=== PATIENT | male | born 1945 | race Caucasian/White ===

== ENCOUNTER → 2016-12-19 | Outpatient (CLI) | payer MEDICARE, BC ==
[2016-12-19 10:37] LABS: CH 32.5; CHCM 34.6; HCT 40.8 % (39.0-53.0); HDW 3.32; HGB 13.7 gm/dL (13.0-17.5); MCH 31.8 pg (25.0-35.0); MCHC 33.6 g/dL (31.0-37.0); MCV 94.5 fL (80.0-100.0); Mean Platelet Volume 6.5; RBC 4.31 m/uL (4.30-5.90); RDW 13.8 % (11.5-15.5); WBC 6.1 k/uL (3.8-10.6)
[2016-12-19 11:07] LABS: ALT 42 U/L (21-72); AST 26 U/L (17-59); Alkaline Phosphatase 55 U/L (38-126); Anion Gap 12 mmol/L; Blood Urea Nitrogen 15 mg/dL (9-20); Calcium 9.7 mg/dL (8.4-10.2); Carbon Dioxide 26 mmol/L (22-30); Chloride 103 mmol/L (98-107); Glucose 145 mg/dL (74-99); Non-African American GFR(MDRD) >60 (>60 ml/min/1.73 sqM); Potassium 4.9 mmol/L (3.5-5.1); Sodium 141 mmol/L (137-145); Total Bilirubin 1.1 mg/dL (0.2-1.3); Total Protein 7.8 g/dL (6.3-8.2)
--- NOTE | 2016-12-19 11:31 | XR ---
EXAMINATION TYPE: XR chest 2V DATE OF EXAM: 12/19/2016 10:39 AM COMPARISON: None TECHNIQUE: PA and lateral views submitted. HISTORY: Aortic stenosis, heart murmur FINDINGS: The lungs are clear and there is no pneumothorax, pleural effusion, or focal pneumonia. Calcified g ranulomas left upper lobe. Hypertrophic change of the spine. Arthropathy of the shoulders. No pneumot horax. Degenerative change of the spine. IMPRESSION: 1. No acute process.
--- NOTE | 2016-12-19 12:24 | US ---
EXAMINATION TYPE: US abdomen complete DATE OF EXAM: 12/19/2016 10:12 AM COMPARISON: NONE CLINICAL HISTORY: 71-year-old male R10.11 RUQ PAIN. RUQ pain x 3 days, obese patient. TECHNIQUE: Multiple sonographic images of the abdomen are obtained. FINDINGS: ART MUSEUM AIDE NOTES:Technically difficult and limited study due to patient's body habitus Liver Length: 15.7 cm Gallbladder Wall: 0.2 cm CBD: 0.4 cm Spleen: 13.2 cm Right Kidney: 10.3 x 5.6 x 5.9 cm Left Kidney: 10.9 x 5.7 x 5.6 cm Pancreas: obscured by overlying midline bowel gas Liver: Coarsened echotexture with increased echogenicity, limited by rib shadowing Gallbladder: No abnormal gallbladder distention, wall thickening, or pericholecystic fluid. Multiple shadowing calculi are present measuring up to 8 mm. Evidence for sonographic Pride's sign: no CBD: visualized portions within normal limits, limited by overlying bowel gas Spleen: Upper limits of normal in size at 13.2cm, visualization limited by rib shadowing Right Kidney: No hydronephrosis. Left Kidney: No hydronephrosis. Upper IVC: Suboptimally visualized. Abd Aorta: visualized portions within normal limits, limited by overlying midline bowel gas IMPRESSION: 1. Technically limited examination as above. 2. Liver parenchyma appears coarsened and somewhat echogenic. Correlate for underlying hepatic steato sis or other nonspecific hepatocellular disease. 3. Cholelithiasis without acute cholecystitis. 4. No biliary ductal dilatation.
== END | disposition home or self-care (01) ==
LOC: RADUSWWP 09:31
PROVIDERS: ATTEND Internal Medicine
DX: K76.9 Liver disease, unspecified (principal); K80.20 Calculus of gallbladder without cholecystitis without obstruction; E11.3299 Type 2 diabetes mellitus with mild nonproliferative diabetic retinopathy without macular edema, unspecified eye; I35.0 Nonrheumatic aortic (valve) stenosis; R10.11 Right upper quadrant pain
CPT/HCPCS: 71020; 76700; 80053; 83690; 85027

== ENCOUNTER 2017-01-03 08:21 | Day surgery (SDC) | payer MEDICARE, BC ==
[2016-12-31 13:01] VITALS: BMI 37.9
[~2017-01-03 08:21] MED LIST: DEXAMETHASONE SOD PHOSPHATE 10 MG/ML 1 ML VIAL IV ONE; MIDAZOLAM 2 MG/2 ML VIAL IV PRN; ONDANSETRON 4 MG/2 ML VIAL IVP ONE; ceFAZolin 2 GM in SODIUM CHLORIDE 0.9% 100 ML IVPB ONE
[2017-01-03 08:54] LABS: Glucose,Whole Blood 166 mg/dL (75-99)
[2017-01-03] MEDS ORDERED: LIDOCAINE 1% 20 ML VIAL (10MG/ML) FOR IV START INTRADERMA ONE (08:54)
[2017-01-03] MEDS: LACTATED RINGERS 1,000 ML IV SCH (08:54)
[2017-01-03] MEDS ORDERED: HEPARIN SODIUM,PORCINE 5,000 UNIT/ML 1 ML VIAL SQ ONE (09:18)
[2017-01-03] MEDS ORDERED: SUCCINYLCHOLINE CHLORIDE 100 MG/5 ML SYR IV ONE (09:39)
[2017-01-03] MEDS ORDERED: LIDOCAINE 1% INJ 10MG/ML (20 ML MDV) ONE (09:39)
[2017-01-03] MEDS ORDERED: NEOSTIGMINE 1 MG/ML 10 ML VIAL ONE (09:39)
[2017-01-03] MEDS ORDERED: MIDAZOLAM 2 MG/2 ML VIAL ONE (09:39)
[2017-01-03] MEDS ORDERED: HYDROmorphone (PF) 1 MG/ML ONE (09:39)
[2017-01-03] MEDS ORDERED: GLYCOPYRROLATE 0.2 MG/ML 2 ML VIAL ONE (09:39)
[2017-01-03] MEDS ORDERED: PROPOFOL 10 MG/ML 20 ML VIAL IV ONE (09:39)
[2017-01-03] MEDS ORDERED: fentaNYL (PF) 50 MCG/ML 2 ML AMP ONE (09:39)
[2017-01-03] MEDS ORDERED: ROCURONIUM BROMIDE 10 MG/ML 10 ML VIAL IV ONE (09:39)
[2017-01-03] MEDS ORDERED: BUPIVACAINE (PF) 0.25% 30 ML VIAL SQ ONE ×2 (09:55)
[2017-01-03] MEDS ORDERED: LACTATED RINGERS 1,000 ML IV ONE (10:16)
[2017-01-03] MEDS ORDERED: HYDROmorphone 1 MG/ML 1 ML SYRINGE IV PRN (11:20)
[2017-01-03] MEDS ORDERED: ONDANSETRON 4 MG/2 ML VIAL IVP PRN (11:21)
[2017-01-03 11:35] LABS: Glucose,Whole Blood 225 mg/dL (75-99)
--- NOTE | 2017-01-03 11:37 | P.OP ---
Date of Procedure: 01/03/17 Preoperative Diagnosis: Cholelithiasis chronic cholecystitis Postoperative Diagnosis: Acute cholecystitis cholelithiasis Procedure(s) Performed: Laparoscopic cholecystectomy Anesthesia: LINA Surgeon: Samuel Johnson Estimated Blood Loss (ml): 50 Pathology: other (Gallbladder) Condition: stable Disposition: PACU Indications for Procedure: Symptomatic gallstones. Patient was scheduled for elective laparoscopic cholecystectomy. Did develop severe pain yesterday after eating an onion roll. Had some tenderness in the right upper quadrant discomfort morning. Informed consent was obtained the procedure have been explained to the patient including potential complications particular bleeding infection surrounding injury pain etc. he understood and agree to proceed.. Operative Findings: Marked acute cholecystitis cholelithiasis Description of Procedure: After induction of general endotracheal anesthesia the abdominal wall was prepped with Betadine and draped local anesthetic Marcaine 0.5% with epinephrine was infiltrated into the skin and subcutaneous tissue just below the umbilicus where a small transverse incision was made. The fascia was exposed and retracted and infiltrated with the Marcaine and a Veress needle then inserted under direct vision with a satisfactory saline drop test. The peritoneal cavity were then inflated with carbon dioxide to pressure approximately 15 mmHg. The needle was then replaced with a 10 mm trocar and the laparoscope inserted. 25 mm trochars were placed in the right upper quadrant and another 5 mm trocar in the epigastrium under direct vision under local anesthesia. Visual exploration revealed a markedly inflamed gallbladder with omental adhesions.. The gallbladder was retracted. The area of the neck was carefully dissected this been somewhat difficult because of a lot of edema swelling and inflammation. The cystic duct was eventually identified and dissected and the 12th the cystic duct was then triply clipped and divided as was the cystic artery. The gallbladder was then dissected from its bed and removed through the umbilical port site the dissection being very difficult because of the acute inflammation. There was some oozing from the liver bed that was controlled with the electrocautery and Surgicel. A ANA drain was then placed in Baxter's pouch and brought out through the lateral port site and secured to the skin. All trochars were then removed under direct vision. CO2 was evacuated. Fascial incision at the umbilicus closed with interrupted 0 Vicryl sutures and the skin with 4-0 Monocryl subcuticular sutures and Steri-Strips WERE correct estimated blood loss was about 50 MLS. The patient remained stable and was transferred to the recovery room in good and stable condition.
[2017-01-03] MEDS ORDERED: INSULIN LISPRO (humaLOG) 300 UNIT/3 ML VIAL SQ ONE (11:44)
[2017-01-03] MEDS: SODIUM CHLORIDE 0.9% 1,000 ML IV SCH ×2 (12:27→23:38)
[2017-01-03 13:03] LABS: Glucose,Whole Blood 205 mg/dL (75-99)
[2017-01-03] MEDS: ACETAMINOPHEN IV (For NPO) 1,000 MG in EMPTY BAG 1 BAG IVPB SCH ×3 (15:44→23:34)
[2017-01-03] MEDS: traMADol 50 MG TAB PO SCH ×3 (15:57→22:49)
[2017-01-03] MEDS: ceFAZolin 2 GM in SODIUM CHLORIDE 0.9% 100 ML IVPB SCH ×2 (15:59→23:38)
[2017-01-03] MEDS: LOSARTAN 50 MG TAB PO SCH (17:26)
[2017-01-03] MEDS: PRAVASTATIN SODIUM 40 MG TAB PO SCH (17:26)
[2017-01-03] MEDS: amLODIPine 5 MG TAB PO SCH (17:26)
[2017-01-03] MEDS ORDERED: metFORMIN 500 MG TAB PO SCH (17:30)
[2017-01-03 17:35] LABS: Glucose,Whole Blood 184 mg/dL (75-99)
[2017-01-03] MEDS ORDERED: ACETAMINOPHEN TAB 325 MG TAB PO PRN (17:51)
[2017-01-03 21:16] LABS: Glucose,Whole Blood 155 mg/dL (75-99)
[2017-01-03] MEDS: HEPARIN SODIUM,PORCINE 5,000 UNIT/ML 1 ML VIAL SQ SCH (22:49)
[2017-01-03] MEDS: INSULIN LISPRO (humaLOG) 300 UNIT/3 ML VIAL SQ SCH (22:50)
[2017-01-04 02:11] LABS: Glucose,Whole Blood 134 mg/dL (75-99)
[2017-01-04] MEDS: ACETAMINOPHEN IV (For NPO) 1,000 MG in EMPTY BAG 1 BAG IVPB SCH (05:49)
[2017-01-04] MEDS: LACTATED RINGERS 1,000 ML IV SCH ×2 (05:49→11:03)
[2017-01-04 07:32] LABS: Glucose,Whole Blood 130 mg/dL (75-99)
[2017-01-04 07:46] VITALS: BP 119/72; PULSE 84; RESP 19; TEMP 97.1
[2017-01-04] MEDS: INSULIN LISPRO (humaLOG) 300 UNIT/3 ML VIAL SQ SCH (08:16)
[2017-01-04] MEDS ORDERED: PIOGLITAZONE 30 MG TAB PO SCH (09:00)
[2017-01-04] MEDS: ceFAZolin 2 GM in SODIUM CHLORIDE 0.9% 100 ML IVPB SCH (09:36)
[2017-01-04] MEDS: HEPARIN SODIUM,PORCINE 5,000 UNIT/ML 1 ML VIAL SQ SCH (09:37)
[2017-01-04] MEDS: amLODIPine 5 MG TAB PO SCH (09:37)
[2017-01-04] MEDS: LOSARTAN 50 MG TAB PO SCH (09:37)
[2017-01-04] MEDS: PRAVASTATIN SODIUM 40 MG TAB PO SCH (09:37)
[2017-01-04] MEDS: traMADol 50 MG TAB PO SCH (09:46)
[2017-01-04 09:55] LABS: Basophils # (A) 0.1 k/uL (0-0.2); Basophils % (A) 1 %; CH 32.4; CHCM 34.5; Eosinophils # (A) 0.1 k/uL (0-0.7); Eosinophils % (A) 1 %; HCT 40.7 % (39.0-53.0); HDW 3.29; HGB 13.6 gm/dL (13.0-17.5); Luc # (Auto) 0.15; Luc % (Auto) 2; Lymphocytes # (A) 1.5 k/uL (1.0-4.8); Lymphocytes % (A) 16 %; MCH 31.6 pg (25.0-35.0); MCHC 33.4 g/dL (31.0-37.0); MCV 94.5 fL (80.0-100.0); Mean Platelet Volume 6.1; Monocytes # (A) 0.5 k/uL (0-1.0); Monocytes % (A) 5 %; Neutrophils # (A) 6.9 k/uL (1.3-7.7); Neutrophils % (A) 75 %; WBC 9.1 k/uL (3.8-10.6); WBC (Perox) 9.08
[2017-01-04 10:11] LABS: ALT 86 U/L (21-72); AST 67 U/L (17-59); Alkaline Phosphatase 47 U/L (38-126); Anion Gap 10 mmol/L; Blood Urea Nitrogen 13 mg/dL (9-20); Calcium 9.6 mg/dL (8.4-10.2); Carbon Dioxide 26 mmol/L (22-30); Chloride 103 mmol/L (98-107); Glucose 150 mg/dL (74-99); Non-African American GFR(MDRD) >60 (>60 ml/min/1.73 sqM); Potassium 4.4 mmol/L (3.5-5.1); Sodium 139 mmol/L (137-145); Total Bilirubin 0.9 mg/dL (0.2-1.3); Total Protein 7.5 g/dL (6.3-8.2)
--- NOTE | 2017-01-04 10:58 | CONS ---
DATE OF CONSULTATION: 01/03/2017 Medical consult for medical management. He is a FULL CODE. He is a 71-year-old white male. DATA: 5 feet 7 inches. Height and weight is 109.769 kg, BSA 2.19 sq m, BMI 37.9 kg/sq m. ALLERGIES: MORPHINE. CHIEF COMPLAINT: The patient has underlying history of cholelithiasis and he has been scheduled for surgery. However, yesterday he had acute episode of acute cholecystitis and at that time came to the emergency room subsequently with this known that he has a problem and exacerbated, was taken to the OR and underwent laparoscopic cholecystectomy. The finding found that he had acute inflammation with acute cholecystitis and cholelithiasis. The patient's attending is Dr. Johnson. At that time, Dr. Johnson was out of town and they called me for medical consult as I am covering for Dr. Johnson this weekend. The patient has history of hypertension and history of diabetes mellitus type 2. He has been taking his medication. He is nonsmoker, occasional social drinker. No bleeding tendency. His blood sugar monitored and covered with insulin to scale. He is currently 155. His vital signs indicating that postop his pulse rate 94 and blood pressure 136/76 with the mean 96 and the oxygen saturation 98. His medication list: He has currently on cefazolin 2 gm, which he has received. He has underlying heparin subcu for DVT prophylaxis. He is on Dilaudid for every 3 hours 0.5 mg p.r.n. for pain. He is on insulin Humalog a.c. and at bedtime and he is on lactated Ringer's in the IV 20 mL an hour. He is on losartan 150 mg p.o. daily and he is also on Zofran. He has been on Zofran 4 mg IV push every 6 hour p.r.n. in case of he got nausea and vomiting. So far no nausea and vomiting postop. He is on pravastatin for hyperlipidemia and 40 mg daily. REVIEW OF SYSTEMS: NEUROPSYCHIATRY: Negative. CARDIOVASCULAR: He has only a history of hypertension. No chest pain or angina postoperative. ENDOCRINE: Diabetes mellitus. PULMONARY: No history of smoking. GI: He has a history of acute inflammation cholecystitis and cholelithiasis and underwent a laparoscopic cholecystectomy. At that time, found that it had adhesed to the liver and they had to peel it off from that place and patient has drainage and currently drained bloody drainage at this time. The abdomen so far has sluggish but present bowel sounds. The abdomen is normal. No tenderness except on the area of the laparoscopic done. EXTREMITIES: No edema. Positive pulses. NEURO: Exam was essentially negative. Assessment at this time we are going to hold the Actos toes as well as we are going to hold the Glucophage for tonight and resume tomorrow and no dexamethasone or Decadron to be given as well for wound healing. He is covered with insulin to scale for the time being. ASSESSMENT: 1. Underlying diabetes mellitus type 2 currently on insulin. We will hold oral hypoglycemic agent. 2. Hypertension with hypertensive heart disease. 3. Underlying hyperlipidemia. 4. Status post laparoscopic cholecystectomy with underlying acute cholecystitis and cholelithiasis. PLAN: We addressed the medication and reconciliation as well. Patient will be on clear liquid diet tonight and then tomorrow, we may try the soft diet and advance to regular diet by lunch and then subsequently by the time seen by Dr. Johnson or his associate and approve discharge and can then subsequently discharge. He is resuming on discharge his medication at home and no other problem with that.
[2017-01-04] MEDS: SODIUM CHLORIDE 0.9% 1,000 ML IV SCH (11:02)
--- NOTE | 2017-01-04 11:09 | P.DS ---
Providers Attending physician: Samuel Johnson Consults: 01/03/17 11:24 Consult Physician Routine Consulting Provider: Dex Johnson Consult Reason/Comments: med. mx Do you want consulting provider notified?: Yes Primary care physician: Dex Johnson Plan - Discharge Summary New Discharge Prescriptions: Cephalexin [Keflex] 500 mg PO Q8HR #14 cap traMADol HCL [Ultram] 50 mg PO Q6HR PRN #30 tab PRN Reason: Pain Discharge Medication List Acetaminophen [Tylenol] 325 mg PO Q4H PRN 12/31/16 [History] Ibuprofen [Motrin] 800 mg PO Q4-6H PRN 12/31/16 [History] Pioglitazone [Actos] 30 mg PO DAILY 12/31/16 [History] Pravastatin Sodium [Pravachol] 40 mg PO DAILY 12/31/16 [History] amLODIPine BES/OLMESARTAN MED [amLODIPine BES/OLMESARTAN MED 5-40 mg] 1 each PO DAILY 12/31/16 [History] metFORMIN HCL [Glucophage] 500 mg PO BID 12/31/16 [History] Cephalexin [Keflex] 500 mg PO Q8HR #14 cap 01/03/17 [Rx] traMADol HCL [Ultram] 50 mg PO Q6HR PRN #30 tab 01/03/17 [Rx] Follow up Appointment(s)/Referral(s): Samuel Johnson MD [STAFF PHYSICIAN] - 1 Week Patient Instructions/Handouts: *Surgery [facility] - Laparoscopic Cholecystectomy Discharge Instructions Activity/Diet/Wound Care/Special Instructions: Low fat diet. Resume home meds. No heavy lifting for 1 week. May shower. Incentive spirometry every 1 hr while awake.
--- NOTE | 2017-01-04 11:11 | P.PN ---
Progress Note - Text The patient is awake alert stable sitting up cheerful. In no distress. Tolerated his breakfast soft diet. On examination he is afebrile vitals are stable abdomen is soft usual postoperative tenderness. ANA drain is serosanguineous and not excessive. Labs unremarkable. Bilirubin is normal. CBC is normal. Good recovery status post laparoscopic cholecystectomy for acute cholecystitis cholelithiasis. We will DC ANA drain and discharge patient on oral analgesia and antibiotics. No heavy lifting for a week. May shower. Return appointment to the office in about a week resume home meds.
[2017-01-04 13:48] LABS: Hemoglobin A1C 5.6 % (4.2-6.1)
== END 2017-01-04 11:33 | disposition home or self-care (01) ==
LOC: OR 08:21 → 3OBS 11:12 → 4MS4W 17:22 → OR 01-04 11:33
PROVIDERS: ATTEND Surgery
DX: K80.12 Calculus of gallbladder with acute and chronic cholecystitis without obstruction (principal); K82.8 Other specified diseases of gallbladder; I11.9 Hypertensive heart disease without heart failure; E11.9 Type 2 diabetes mellitus without complications; Z79.4 Long term (current) use of insulin; Z79.84 Long term (current) use of oral hypoglycemic drugs; E78.5 Hyperlipidemia, unspecified; Z79.899 Other long term (current) drug therapy; Z88.5 Allergy status to narcotic agent
CPT/HCPCS: 88304; 80053; 83036; 85025; 47562; J2250; J1644 ×2; J1100; J2710; J0690 ×2; J2405; J2001; J3010; J1170; J0330; J2704

== ENCOUNTER → 2017-02-13 | Outpatient (CLI) | payer MEDICARE, BC ==
--- NOTE | 2017-02-13 09:01 | CT ---
EXAMINATION TYPE: CT brain wo con DATE OF EXAM: 02/13/2017 COMPARISON: NONE INDICATION: Patient complains of new onset headaches. Patient has a history of parkinsons disease. DLP: 834 mGycm, Automated exposure control for dose reduction was used. CONTRAST: None CT of the brain is performed utilizing 3 mm thick sections through the posterior fossa and 3 mm thick sections through the remaining calvarium. Study is performed within 24 hours of arrival to the hosp [facility]. No abnormal hyperdensity is present to suggest an acute intracranial hemorrhage. No mass lesion is evident. No acute infarcts are evident. Ventricles and sulci are appropriate for the patient age. Paranasal sinuses and mastoid air cells within the [id number]-apns are clear. There is some superficial soft tissue swelling over the right parietal region. Underlying sebaceous c yst could be considered within the differential. The calvarium appears unremarkable. Hyperostosis fro ntalis internus, normal variant, is present. IMPRESSIONS: 1. No suspicious acute changes intracranial CT brain. 2. Right parietal superficial soft tissue thickening. A sebaceous cyst may be present.
== END | disposition home or self-care (01) ==
LOC: RADCTMAIN 08:40
PROVIDERS: ATTEND Internal Medicine
DX: M79.89 Other specified soft tissue disorders (principal); G20 Parkinson's disease; I10 Essential (primary) hypertension; I35.0 Nonrheumatic aortic (valve) stenosis; E11.3299 Type 2 diabetes mellitus with mild nonproliferative diabetic retinopathy without macular edema, unspecified eye
CPT/HCPCS: 70450

== ENCOUNTER → 2017-05-06 | Outpatient (CLI) | payer MEDICARE, BC ==
--- NOTE | 2017-05-06 10:41 | MR ---
EXAMINATION TYPE: MR cervical spine wo con DATE OF EXAM: 05/06/2017 COMPARISON: NONE HISTORY: Neck stiffness and pain without known injury or radiation to the upper extremities. TECHNIQUE: Multiplanar, multisequence images of the cervical spine were acquired. Large T1/T2 hyperintense vertebral body hemangioma is seen of the right lateral margin of T2 as well as smaller similar lesions at T1, T2, C5, and C6. T1 hypointense and T2 peripherally hyperintense oss eous lesion measuring 7 mm is seen of the C4 vertebral body. There is slight retrolisthesis of C4 and C5. Vertebral body heights are maintained. Clivus is unremarkable as is the posterior fossa. C2-C3: Left eccentric disc osteophyte complex mildly narrows the left neural foramen. C3-C4: Left-sided uncovertebral hypertrophy and disc osteophyte complex without focal disc herniation severely narrow the left neural foramen. Right uncovertebral hypertrophy mildly narrows the right ne ural foramen and combination with facet arthropathy. These findings also result in moderate spinal ca nal stenosis with effacement of the ventral thecal space on the left and impression upon the cervical cord. C4-C5: There is a left paracentral disc herniation with 4 mm cephalad disc extrusion and pronounced l igament of flavum buckling. These findings in combination with uncovertebral hypertrophy and facet ar thropathy creates severe spinal canal stenosis, severe left neural foraminal narrowing, and moderate right neural foraminal narrowing. Just inferior to this subtle T2 hyperintense cord signal is appreci ated that is also subtly T1 hyperintense and likely relates to myelomalacia. C5-C6: There is a right paracentral disc herniation and disc osteophyte complex in combination with f acet arthropathy and uncovertebral hypertrophy as well as moderate ligamentum flavum buckling create severe spinal canal stenosis with impression upon the cervical cord and abnormal cord signal. The cor d is subtly T1 hyperintense and T2 hyperintense likely relating to myelomalacia. Resultant severe dimple ateral neural foraminal narrowing is seen. Osteophyte protrudes inferiorly along the C6 posterior anni tebral body. C6-C7: Central disc osteophyte complex is seen without evidence of neuroforaminal narrowing or spinal canal stenosis. C7-T1: No evidence for degenerative disc disease. No disc bulge/herniation or protrusion. No Canal stenosis. Foramina are patent bilaterally. T2 hyperintense lesion of the right transverse process is identified and could relate to a hemangioma as multiple hemangiomas are seen within the vertebrae. Cervical segments are intact. There is normal alignment. Cervical spinal cord is of normal signal. Craniovertebral junction relationships are within normal limits. IMPRESSION: 1. Severe spinal canal stenosis at C4-C5 and C5-C6 resulting in abnormal cord signal likely relating to myelomalacia. This is a result of a right paracentral disc herniation at C5-C6, left paracentral d isc herniation at C4-C5 with cephalad extrusion of 4 mm, facet arthropathy, uncovertebral hypertrophy , and ligamentum flavum buckling. 2. Multiple vertebral body hemangiomas and additional T1 hypointense and T2 hyperintense osseous lesi on of the C4 vertebral body that could relate to an atypical hemangioma or other osseous lesion. CT c ould be performed for further characterization. 3. Multilevel degenerative disc disease with variable degree of neuroforaminal narrowing most severe at C4-C5 and C5-C6.
== END | disposition home or self-care (01) ==
LOC: RADMRIMAIN 07:37
PROVIDERS: ATTEND Psychiatry & Neurology Neurology
DX: M48.02 Spinal stenosis, cervical region (principal); M50.021 Cervical disc disorder at C4-C5 level with myelopathy; M47.12 Other spondylosis with myelopathy, cervical region; M46.82 Other specified inflammatory spondylopathies, cervical region; D18.09 Hemangioma of other sites
CPT/HCPCS: 72141

== ENCOUNTER → 2017-09-30 | Outpatient (CLI) | payer MEDICARE, BC ==
[2017-09-30 11:19] LABS: HGB 13.3 gm/dL (13.0-17.5); MCH 30.3 pg (25.0-35.0); MCHC 32.5 g/dL (31.0-37.0); Mean Platelet Volume 6.1; Platelet Count 326 k/uL (150-450); RDW 13.9 % (11.5-15.5); WBC 5.8 k/uL (3.8-10.6)
[2017-09-30 11:33] LABS: ALT 57 U/L (21-72); AST 39 U/L (17-59); Albumin 3.9 g/dL (3.5-5.0); Alkaline Phosphatase 86 U/L (38-126); Anion Gap 12 mmol/L; Blood Urea Nitrogen 22 mg/dL (9-20); Calcium 10.1 mg/dL (8.4-10.2); Carbon Dioxide 27 mmol/L (22-30); Chloride 102 mmol/L (98-107); Glucose 165 mg/dL (74-99); Lipase 248 U/L (23-300); Potassium 4.8 mmol/L (3.5-5.1); Sodium 141 mmol/L (137-145); Total Bilirubin 0.6 mg/dL (0.2-1.3); Total Protein 7.2 g/dL (6.3-8.2)
== END | disposition home or self-care (01) ==
LOC: LABWHC1 10:50
PROVIDERS: ATTEND Internal Medicine
DX: R10.11 Right upper quadrant pain (principal)
CPT/HCPCS: 36415; 80053; 83690; 85027

== ENCOUNTER → 2017-09-30 | Outpatient (CLI) | payer MEDICARE, BC ==
--- NOTE | 2017-09-30 12:02 | XR ---
EXAMINATION TYPE: XR chest 2V DATE OF EXAM: 09/30/2017 COMPARISON: 12/19/2016 TECHNIQUE: PA and lateral views submitted. HISTORY: Pain FINDINGS: The lungs are clear and there is no pneumothorax, pleural effusion, or focal pneumonia. Pleural-bas ed thickening noted. Diffuse osteopenia and arthropathy shoulders. Linear density left upper lobe lik marylou related to scar. IMPRESSION: 1. Chronic pleural-based thickening with tiny calcification or linear density left upper lobe likely related to granuloma or scar.
== END | disposition home or self-care (01) ==
LOC: RADXRMAIN 11:08
PROVIDERS: ATTEND Internal Medicine
DX: J98.4 Other disorders of lung (principal); R10.11 Right upper quadrant pain
CPT/HCPCS: 71046

== ENCOUNTER 2017-10-06 09:56 | Inpatient (IN) | payer MEDICARE, BC ==
[2017-10-06] MEDS ORDERED: SODIUM CHLORIDE 0.9% 1,000 ML IV STA ×2 (10:38)
--- NOTE | 2017-10-06 10:42 | ED ---
Syncope HPI - General Chief Complaint: Syncope Stated Complaint: Syncope Time Seen by Provider: 10/06/17 10:00 Source: patient, RN notes reviewed Mode of arrival: EMS Limitations: no limitations - History of Present Illness Initial Comments: This is a 72-year-old male who was brought in by EMS after almost passing out at home this morning. He states he was seen a chair when she get up and start walking felt dizzy. He had sweats. He does state he is having right-sided chest and upper abdominal pain for the past 2 weeks he gets worse with deep breathing. His gallbladder out in December of this past year also note he's had recent neck fusion in April of this past year and back surgery in June this past year. He's had sweats she denies any overt fevers or chills he says some decreased intake orally. Denies any nausea vomiting diarrhea at this time. No rhinorrhea. MD Complaint: felt faint, almost passed out - Related Data Home Medications Medication Instructions Recorded Confirmed Acetaminophen [Tylenol] 325 mg PO Q4H PRN 12/31/16 10/06/17 Ibuprofen [Motrin] 800 mg PO BID PRN 12/31/16 10/06/17 Pioglitazone [Actos] 30 mg PO DAILY 12/31/16 10/06/17 Pravastatin Sodium [Pravachol] 40 mg PO DAILY 12/31/16 10/06/17 Multivitamin [Men's Multi-Vitamin] 1 tab PO DAILY 10/06/17 10/06/17 amLODIPine BESYLATE/BENAZEPRIL 1 tab PO DAILY 10/06/17 10/06/17 [amLODIPine BESYLATE/BENAZEPRIL 5-40 mg] metFORMIN HCL ER [Glucophage Xr] 500 mg PO BID 10/06/17 10/06/17 Allergies Allergy/AdvReac Type Severity Reaction Status Date / Time morphine AdvReac Nausea & Verified 10/06/17 10:02 Vomiting Review of Systems ROS Statement: Those systems with pertinent positive or pertinent negative responses have been documented in the HPI. ROS Other: All systems not noted in ROS Statement are negative. Past Medical History Past Medical History: Diabetes Mellitus, Hyperlipidemia, Hypertension, Osteoarthritis (OA) Additional Past Medical History / Comment(s): heart murmur History of Any Multi-Drug Resistant Organisms: None Reported Past Surgical History: Back Surgery Additional Past Surgical History / Comment(s): colonoscopy Past Anesthesia/Blood Transfusion Reactions: Previous Problems w/ Anesthesia Additional Past Anesthesia/Blood Transfusion Reaction / Comment(s): difficulty in past w/intubation-states was told has short neck, when intubation attempted orally they had difficulty & "took too long & lungs filled up w/fluid", was able to be intubated successfully nasally-this was back in the 90's Past Psychological History: No Psychological Hx Reported Smoking Status: Unknown if ever smoked Past Alcohol Use History: Occasional Past Drug Use History: None Reported - Past Family History Sister(s) Family Medical History: Cancer General Exam - General Exam Comments Initial Comments: Pezzer well-developed well-nourished awake alert but lethargic male Limitations: no limitations General appearance: alert, in no apparent distress, lethargic Head exam: Present: atraumatic, normocephalic, normal inspection Eye exam: Present: normal appearance, PERRL, EOMI. Absent: scleral icterus, conjunctival injection, periorbital swelling ENT exam: Present: mucous membranes dry Neck exam: Present: normal inspection. Absent: tenderness, meningismus, lymphadenopathy Respiratory exam: Present: normal lung sounds bilaterally, chest wall tenderness (Slight amount of tenderness palpation of the right anterior lateral inferior chest wall no step-off or crepitation). Absent: respiratory distress, wheezes, rales, rhonchi, stridor Cardiovascular Exam: Present: normal rhythm, tachycardia, normal heart sounds. Absent: systolic murmur, diastolic murmur, rubs, gallop, clicks GI/Abdominal exam: Present: soft, normal bowel sounds. Absent: distended, tenderness, guarding, rebound, rigid, bruit, pulsatile mass, hernia Rectal exam: Present: deferred Extremities exam: Present: normal inspection, full ROM, normal capillary refill. Absent: tenderness, pedal edema, joint swelling, calf tenderness Back exam: Present: normal inspection, full ROM. Absent: tenderness, CVA tenderness (R), CVA tenderness (L), muscle spasm, paraspinal tenderness, vertebral tenderness, rash noted Neurological exam: Present: alert, oriented X3, CN II-XII intact Psychiatric exam: Present: normal affect, normal mood Skin exam: Present: warm, intact, diaphoretic, pallor. Absent: rash Course Vital Signs 10/06/17 10/06/17 10/06/17 10:00 10:02 10:48 Temperature 97.1 F L Pulse Rate 107 H 106 H Pulse Rate [ Sitting] Pulse Rate [ Standing] Pulse Rate [ Supine] Respiratory 16 20 Rate Blood Pressure 86/43 103/55 Blood Pressure [Sitting] Blood Pressure [Standing] Blood Pressure [Supine] O2 Sat by Pulse 100 100 Oximetry 10/06/17 10/06/17 10/06/17 11:18 12:10 13:05 Temperature Pulse Rate 101 H 98 Pulse Rate [ Sitting] Pulse Rate [ Standing] Pulse Rate [ Supine] Respiratory 20 96 H Rate Blood Pressure 107/57 98/58 116/58 Blood Pressure [Sitting] Blood Pressure [Standing] Blood Pressure [Supine] O2 Sat by Pulse 100 96 100 Oximetry 10/06/17 10/06/17 10/06/17 13:35 14:25 15:35 Temperature Pulse Rate 98 99 99 Pulse Rate [ Sitting] Pulse Rate [ Standing] Pulse Rate [ Supine] Respiratory 18 18 Rate Blood Pressure 112/52 123/63 108/58 Blood Pressure [Sitting] Blood Pressure [Standing] Blood Pressure [Supine] O2 Sat by Pulse 99 99 99 Oximetry 10/06/17 10/06/17 10/06/17 16:35 17:31 18:29 Temperature Pulse Rate 101 H 95 Pulse Rate [ 98 Sitting] Pulse Rate [ 114 H Standing] Pulse Rate [ 94 Supine] Respiratory 18 18 Rate Blood Pressure 130/68 125/62 Blood Pressure 125/60 [Sitting] Blood Pressure 79/51 [Standing] Blood Pressure 131/60 [Supine] O2 Sat by Pulse 99 99 Oximetry - Reevaluation(s) Reevaluation #1: 10/06/17 18:39 I did reevaluate patient several occasions was feeling improved after IV fluids. EKG Findings - EKG Results: EKG: interpreted by ERMD (Sinus tachycardia rate 108 MT interval 164 QRS 76 QT since QTC of 320/439 over inferior changes no acute ST-T wave changes.) Medical Decision Making - Medical Decision Making Orthostatics were done and the patient prior to final discussion with Dr. Johnson. The patient blood pressure dropped from 131 systolic to 79 systolic diastolic from 60-51 heart rate ranging up to 114 from 94. He was feeling lightheaded and weak. After discussion with Dr. Johnson patient be admitted for IV fluids and further evaluation. - Lab Data Result diagrams: 10/06/17 10:11 10/06/17 11:45 Lab Results 10/06/17 10/06/17 10/06/17 Range/Units 10:11 10:11 10:45 WBC 7.5 (3.8-10.6) k/uL RBC 4.07 L (4.30-5.90) m/uL Hgb 11.9 L (13.0-17.5) gm/dL Hct 36.9 L (39.0-53.0) % MCV 90.7 (80.0-100.0) fL MCH 29.3 (25.0-35.0) pg MCHC 32.3 (31.0-37.0) g/dL RDW 13.8 (11.5-15.5) % Plt Count 566 H (150-450) k/uL Neutrophils % 74 % Lymphocytes % 18 % Monocytes % 4 % Eosinophils % 2 % Basophils % 1 % Neutrophils # 5.5 (1.3-7.7) k/uL Lymphocytes # 1.4 (1.0-4.8) k/uL Monocytes # 0.3 (0-1.0) k/uL Eosinophils # 0.1 (0-0.7) k/uL Basophils # 0.1 (0-0.2) k/uL PT 10.4 (9.0-12.0) sec INR 1.1 (<1.2) APTT 19.3 L (22.0-30.0) sec D-Dimer 2.19 H (<0.60) mg/L FEU Sodium (137-145) mmol/L Potassium (3.5-5.1) mmol/L Chloride (98-107) mmol/L Carbon Dioxide (22-30) mmol/L Anion Gap mmol/L BUN (9-20) mg/dL Creatinine (0.66-1.25) mg/dL Est GFR (MDRD) Af Amer (>60 ml/min/1.73 sqM) Est GFR (MDRD) Non-Af (>60 ml/min/1.73 sqM) Glucose (74-99) mg/dL POC Glucose (mg/dL) 269 H (75-99) mg/dL POC Glu Harp Maker ID Vikas Mandel Calcium (8.4-10.2) mg/dL Magnesium (1.6-2.3) mg/dL Total Bilirubin (0.2-1.3) mg/dL AST (17-59) U/L ALT (21-72) U/L Alkaline Phosphatase (38-126) U/L Total Creatine Kinase (55-170) U/L CK-MB (CK-2) (0.0-2.4) ng/mL CK-MB (CK-2) Rel Index Troponin I (0.000-0.034) ng/mL Total Protein (6.3-8.2) g/dL Albumin (3.5-5.0) g/dL 10/06/17 10/06/17 Range/Units 11:45 11:45 WBC (3.8-10.6) k/uL RBC (4.30-5.90) m/uL Hgb (13.0-17.5) gm/dL Hct (39.0-53.0) % MCV (80.0-100.0) fL MCH (25.0-35.0) pg MCHC (31.0-37.0) g/dL RDW (11.5-15.5) % Plt Count (150-450) k/uL Neutrophils % % Lymphocytes % % Monocytes % % Eosinophils % % Basophils % % Neutrophils # (1.3-7.7) k/uL Lymphocytes # (1.0-4.8) k/uL Monocytes # (0-1.0) k/uL Eosinophils # (0-0.7) k/uL Basophils # (0-0.2) k/uL PT (9.0-12.0) sec INR (<1.2) APTT (22.0-30.0) sec D-Dimer (<0.60) mg/L FEU Sodium 138 (137-145) mmol/L Potassium 4.8 (3.5-5.1) mmol/L Chloride 104 (98-107) mmol/L Carbon Dioxide 25 (22-30) mmol/L Anion Gap 9 mmol/L BUN 14 (9-20) mg/dL Creatinine 1.00 (0.66-1.25) mg/dL Est GFR (MDRD) Af Amer >60 (>60 ml/min/1.73 sqM) Est GFR (MDRD) Non-Af >60 (>60 ml/min/1.73 sqM) Glucose 233 H (74-99) mg/dL POC Glucose (mg/dL) (75-99) mg/dL POC Glu Harp Maker ID Calcium 9.0 (8.4-10.2) mg/dL Magnesium 1.4 L (1.6-2.3) mg/dL Total Bilirubin 0.5 (0.2-1.3) mg/dL AST 35 (17-59) U/L ALT 47 (21-72) U/L Alkaline Phosphatase 72 (38-126) U/L Total Creatine Kinase 26 L (55-170) U/L CK-MB (CK-2) 0.3 (0.0-2.4) ng/mL CK-MB (CK-2) Rel Index 1.2 Troponin I <0.012 (0.000-0.034) ng/mL Total Protein 5.9 L (6.3-8.2) g/dL Albumin 3.1 L (3.5-5.0) g/dL - Radiology Data Radiology results: report reviewed (I did review the imaging and reports that spoken with Dr. Villatoro regarding the findings on the CAT scan suspicious for possible hematoma around sleeve. He did recommend a ultrasound. Ultrasound was performed showing evidence of free fluid ascites no evidence of any bleeding. There was however evidence of a possible mass in the right lobe of the liver.), image reviewed Disposition Clinical Impression: Syncope due to orthostatic hypotension, Failure to thrive Disposition: ADMITTED IP TO THIS [facility] Condition: Stable Referrals: Dex Johnson MD [Primary Care Provider] - 1-2 days
[2017-10-06 10:49] LABS: Glucose,Whole Blood 269 mg/dL (75-99)
[2017-10-06 10:53] LABS: Basophils # (A) 0.1 k/uL (0-0.2); Basophils % (A) 1 %; Eosinophils # (A) 0.1 k/uL (0-0.7); Eosinophils % (A) 2 %; HCT 36.9 % (39.0-53.0); HGB 11.9 gm/dL (13.0-17.5); Lymphocytes # (A) 1.4 k/uL (1.0-4.8); Lymphocytes % (A) 18 %; MCH 29.3 pg (25.0-35.0); MCHC 32.3 g/dL (31.0-37.0); MCV 90.7 fL (80.0-100.0); Mean Platelet Volume 6.7; Monocytes # (A) 0.3 k/uL (0-1.0); Monocytes % (A) 4 %; Neutrophils # (A) 5.5 k/uL (1.3-7.7); Neutrophils % (A) 74 %; Platelet Count 566 k/uL (150-450); RBC 4.07 m/uL (4.30-5.90); RDW 13.8 % (11.5-15.5); WBC 7.5 k/uL (3.8-10.6)
--- NOTE | 2017-10-06 11:19 | XR ---
EXAMINATION TYPE: XR abdomen 1V DATE OF EXAM: 10/06/2017 COMPARISON: NONE HISTORY: Pain TECHNIQUE: One view abdominal series FINDINGS: The osseous structures are intact. The bowel gas pattern is nonspecific. Lung bases are clear. Hype rtrophic change the spine noted. Surgical clips in the right upper quadrant. Vascular calcifications in the pelvis. Arthropathy of the hips. IMPRESSION: 1. Nonspecific abdomen.
--- NOTE | 2017-10-06 11:21 | XR ---
EXAMINATION TYPE: XR chest 2V DATE OF EXAM: 10/06/2017 COMPARISON: 09/30/2017 TECHNIQUE: PA and lateral views submitted. HISTORY: Syncope FINDINGS: The lungs are clear and there is no pneumothorax, pleural effusion, or focal pneumonia. Hypertrophi c and degenerative change of the spine. Postsurgical change involving the cervical spine. Surgical cl ips in the abdomen. Pleural-based thickening bilaterally. Atherosclerotic change aorta. IMPRESSION: 1. No acute process.
[2017-10-06 11:58] LABS: D-Dimer 2.19 mg/L FEU (<0.60); INR 1.1 (<1.2); Prothrombin Time 10.4 sec (9.0-12.0)
[2017-10-06 11:59] LABS: Partial Thromboplastin Time 19.3 sec (22.0-30.0)
[2017-10-06 12:09] LABS: ALT 47 U/L (21-72); AST 35 U/L (17-59); Albumin 3.1 g/dL (3.5-5.0); Anion Gap 9 mmol/L; Blood Urea Nitrogen 14 mg/dL (9-20); Carbon Dioxide 25 mmol/L (22-30); Chloride 104 mmol/L (98-107); Glucose 233 mg/dL (74-99); Magnesium 1.4 mg/dL (1.6-2.3); Potassium 4.8 mmol/L (3.5-5.1); Sodium 138 mmol/L (137-145); Total Bilirubin 0.5 mg/dL (0.2-1.3); Total Protein 5.9 g/dL (6.3-8.2)
[2017-10-06 12:10] LABS: Alkaline Phosphatase 72 U/L (38-126)
[2017-10-06 12:15] LABS: Creatine Kinase 26 U/L (55-170)
[2017-10-06 12:28] LABS: Creatine Kinase MB 0.3 ng/mL (0.0-2.4); Troponin I <0.012 ng/mL (0.000-0.034)
[2017-10-06] MEDS ORDERED: RX INFO: IV CONTRAST WAS GIVEN 1 EACH MISC MISCELLANE PRN ×3 (13:32→19:58)
[2017-10-06] MEDS ORDERED: KETOROLAC 30 MG/ML 1 ML VIAL IVP STA (13:50)
--- NOTE | 2017-10-06 15:54 | CT ---
CT CHEST FOR PULMONARY EMBOLISM. EXAMINATION TYPE: CT angio chest DATE OF EXAM: 10/06/2017 INDICATION: Chest pain x 3-[address] DLP: 589 mGycm, Automated exposure control for dose reduction was used. CONTRAST: Patient injected with 67 mL of Omnipaque 350. COMPARISON: NONE TECHNIQUE: CT of the chest is performed on a spiral scan at 2 mm thick sections. Study is performed with intravenous contrast timed for evaluation for pulmonary embolism. This will limit additional po rtions of the evaluation. 3-D MIP images reconstructed by the technologist are reviewed on the compu ter in the coronal and sagittal planes. FINDINGS: No persistent filling defects are evident to suggest an acute pulmonary embolism. No mediastinal or hilar adenopathy enlarged by CT criteria is evident. The ascending aorta diameter at the level of the main pulmonary artery is 3.2 cm. The main pulmonary artery diameter at the bifur cation is 2.1 cm. The aorta tapers normally throughout its visualized course. Some streak atelectasis is likely present within the dependent portions of the lung bases bilaterally . There is fluid adjacent to the spleen. Correlate for trauma. Focal ascites could be considered. Repor t was called to the emergency room physician Dr. Stafford by Dr. Villatoro by telephone at the time of inte rpretation [id number]. IMPRESSIONS: 1. No acute pulmonary embolism. 2. Fluid adjacent to the spleen. Correlate for trauma. Hemorrhage should be considered Ascites could be considered. Consider ultrasound for additional evaluation
[2017-10-06] MEDS ORDERED: FAMOTIDINE 20 MG/2 ML VIAL IV STA (17:04)
--- NOTE | 2017-10-06 17:56 | US ---
EXAMINATION TYPE: US abdomen complete DATE OF EXAM: 10/06/2017 COMPARISON: CLINICAL HISTORY: Pain. Gallbladder removed 2017 EXAM MEASUREMENTS: Liver Length: 20.5 cm CHD: 0.4 cm Spleen: 12.3 cm Right Kidney: 9.6 x 5.3 x 5.1 cm Left Kidney: 10.9 x 4.8 x 6.1 cm Limited exam due to patient unable to turn LLD or RLD. Limited exam due to overlying bowel gas Pancreas: Obscured by bowel gas Liver: Enlarged. Left lobe liver not well visualized. Possible anterior focal mass= 9.5 x 10.0 x 7. 3 cm. Limited exam Gallbladder: Surgically absent Evidence for sonographic Pride's sign: No CBD: Obscured by overlying bowel gas CHD: wnl Spleen: wnl Right Kidney: wnl as seen, limited visualization due to bowel gas Left Kidney: wnl as seen, limited visualization due to bowel gas Upper IVC: Obscured by overlying bowel gas Abd Aorta: Portions obscured by overlying bowel gas, distal appears wnl Fluid seen surrounding spleen IMPRESSION: Liver is enlarged with heterogeneity. There is possible large mass in the anterior right lobe of the liver. CT scan of the chest is reviewed from today and there is heterogeneous mild vascul ar enhancement in the anterior right lobe of the liver that could relate to a vascular mass. Follow-u p is recommended. MR scan or dedicated CT abdomen would be helpful for further evaluation. Spleen is slightly enlarged. There is free fluid ascites around the spleen. No dilated ducts. No evid ence of renal mass or obstruction.
[2017-10-06] MEDS ORDERED: NALOXONE 0.4 MG/ML 1 ML VIAL IV PRN (18:42)
[2017-10-06] MEDS ORDERED: IBUPROFEN 800 MG TAB PO PRN (18:44)
[2017-10-06] MEDS ORDERED: ACETAMINOPHEN TAB 325 MG TAB PO PRN (18:44)
[2017-10-06 19:15] LABS: HCT 32.6 % (39.0-53.0); HGB 10.6 gm/dL (13.0-17.5); MCH 29.3 pg (25.0-35.0); MCHC 32.4 g/dL (31.0-37.0); MCV 90.3 fL (80.0-100.0); Mean Platelet Volume 6.5; Platelet Count 434 k/uL (150-450); RBC 3.61 m/uL (4.30-5.90); RDW 13.9 % (11.5-15.5); WBC 10.9 k/uL (3.8-10.6)
[2017-10-06 19:37] LABS: ALT 55 U/L (21-72); AST 40 U/L (17-59); Albumin 3.4 g/dL (3.5-5.0); Alkaline Phosphatase 73 U/L (38-126); Anion Gap 9 mmol/L; Blood Urea Nitrogen 17 mg/dL (9-20); Calcium 9.8 mg/dL (8.4-10.2); Carbon Dioxide 24 mmol/L (22-30); Chloride 104 mmol/L (98-107); Glucose 172 mg/dL (74-99); Potassium 5.8 mmol/L (3.5-5.1); Sodium 137 mmol/L (137-145); Total Bilirubin 0.5 mg/dL (0.2-1.3); Total Protein 6.2 g/dL (6.3-8.2)
--- NOTE | 2017-10-06 20:45 | CT ---
EXAMINATION TYPE: CT abdomen pelvis w con DATE OF EXAM: 10/06/2017 COMPARISON: NONE HISTORY: R/O intra-abdominal bleed. Abdominal pain CT DLP: 1813.6 mGycm Automated exposure control for dose reduction was used. TECHNIQUE: Helical acquisition of images was performed from the lung bases through the pelvis. CONTRAST: Performed without Oral Contrast and with IV Contrast, patient injected with 100 mL of Omnipaque 300. FINDINGS: There is a 12 x 7 cm mass in the anterior right lobe of the liver with heterogeneous enhancement nikki mary anne. I do not see peripheral enhancement to suggest hemangioma. The bile ducts are not dilated. There is a 2 cm rounded fluid area in the posterior right lobe of the liver. Spleen appears normal. There is mild to moderate ascites fluid in the abdomen. There is no evidence of a pancreatic mass. Spleen appears normal. There is no adrenal mass. Kidneys show satisfactory contrast opacification. There is no hydronephrosi s. There is a 1 cm cortical cyst in the anterior right kidney. I see no intestinal wall thickening. Bladder distends smoothly with contrast. There is no sign of a p elvic mass. There is no evidence of bowel obstruction. I see no bony destructive process. 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 PATCHY ATELECTASIS IN CALCIFIED PLEURAL PLAQUE AT THE POSTERIOR LUNG BASES. SMALL HEPATIC CYST. MILD TO MODERATE ASCITES FLUID. RIGHT RENAL CORTICAL CYST.
[2017-10-06] MEDS ORDERED: metFORMIN 500 MG TAB PO SCH (21:00)
[2017-10-06] MEDS ORDERED: HYDROmorphone 4 MG/ML 1 ML SYRINGE IVP PRN (21:02)
[2017-10-06] MEDS: ONDANSETRON 4 MG/2 ML VIAL IVP PRN (21:17)
[2017-10-06] MEDS: HYDROmorphone 0.5 MG/0.5 ML SYRINGE IVP PRN (21:17)
[2017-10-06] MEDS: SODIUM CHLORIDE 0.9% 1,000 ML IV SCH (21:20)
[2017-10-06 23:12] LABS: Glucose,Whole Blood 158 mg/dL (75-99)
[2017-10-06 23:25] VITALS: BMI 33.9
--- NOTE | 2017-10-07 00:14 | HP ---
HISTORY AND PHYSICAL CHIEF COMPLAINT: Near passing out. HISTORY OF PRESENT ILLNESS: This 72-year-old gentleman presents to the emergency room with episode of feeling dizzy, lightheaded and near syncope. Symptoms occurred when the patient was standing up from sitting position. He did sit down. He got up again and this time almost passed out, basically was eased down to the floor and then set up as an EMS picked up the patient. He has had some right upper quadrant abdominal pain and pain in the right shoulder area. Seen in the ER, noted to have no evidence of cardiac event except for the postural hypotension. The patient's vital signs at the time of the ER initial visit, initial evaluation revealed the patient's blood pressure was 86/43 with temperature 97.3, pulse of 107, and pulse ox 100 on 2 L. The patient was given IV fluids and blood pressure stabilized. Heart rate stabilized. The patient's heart rate was basically sinus tachycardia. The patient remained fairly stable and he was feeling fine. The ER doctor was contemplating discharging him. He did get the patient up to see how he felt and the patient's blood pressure dropped down to 79/51 with pulse of 60. The patient's does lay back feeling better. At this point, he had undergone a CT scan of the chest to rule out pulmonary embolism. EKG revealed no acute changes and cardiac enzymes were negative. The patient had seen me a week ago and did complain of intermittent pain in the high right upper abdominal area radiating to the shoulder area. The pain felt like he says when he had his gallbladder episode. The patient had a chemistry, CBC and a chest x-ray done which were all unremarkable. The patient's symptoms had improved. The patient actually said he was feeling better. He had another episode of some pains today. The patient has significant pain and in view of this, presented to the hospital. The patient's CT scan of the chest suggested that might be possibly splenic hematoma. An ultrasound did not see the liver very clearly, but was suspicious of some mass. At the time of evaluation, repeat CBC reveals the patient has a hemoglobin dropped to 10.6, and his abdomen seemed to be more distended than when I had seen a week ago. A stat CT scan of the abdomen and pelvis done reveals the patient large liver mass with apparent nodular patchy enhancement suspicious for primary liver tumor and there was patchy atelectasis and calcified pleural plaque in the posterior lung bases. The patient has no cough, congestion. PAST MEDICAL HISTORY: Past medical history significant for diabetes mellitus, adequately controlled. 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 Also there is history of BPH. PAST SURGICAL HISTORY: Significant for bilateral cataract surgery, lumbosacral fusion x3. The last one being in June 2017. The cervical spinal stenosis released back in May 2017. PERSONAL HISTORY: Never smoker. Alcohol 1-2 beers a day. None lately. SOCIAL HISTORY: The patient is , lives with spouse and fairly active until this past year. He does some exercises with the physical therapist lately. He has not done a for the past week. FAMILY MEDICAL HISTORY: Mother age 74, COPD, peripheral arterial disease and diabetes mellitus. Father at age of 74 of coronary artery disease and diabetes mellitus. The patient has a brother at 73, multiple sclerosis, a brother at the age of 27, motor vehicle accident. A brother 65 with history of diabetes mellitus and bipolar disorder. Sister 59 with history of diabetes mellitus, a sister 46 with history of bipolar disorder and diabetes mellitus. The patient has 4 sons and 1 daughter, all in good health. MEDICATIONS: Medications have included: Astrid 180 daily, ibuprofen 800 b.i.d., 30 mg 1 tablet daily. Lotrel 5-40 1 daily, metformin 500 mg 2 tablets daily, Crestor 40 mg daily. SOCIAL HISTORY: Patient , lives with spouse. ALLERGIES: None known. VACCINATION HISTORY: Had influenza vaccine June 09, 2017. Pneumococcal vaccine July 31, 2011. REVIEW OF SYSTEMS: Neuro: Denies any headaches. Present complaint of dizziness and near syncopal episode. The patient recently had been evaluated by the neurologist for possible Parkinson's and does not feel he has so. He did have some cervical spinal stenosis, which is resolved post surgery. Psych: No anxiety depression. Cardiac no chest pain, angina, palpitations. Respiratory: No shortness of breath, cough, hemoptysis. GI some abdominal pain, radiation to shoulder on the right side. No nausea. Some heartburn. No abdominal pain. No diarrhea, constipation, chronic. A bowel movement yesterday which was normal color. no symptoms or dysuria or hematuria. Extremities: Pain, trace edema. Constitutional: No fever or chills. Hematological no anemia or bleeding disorder. Endocrine: History of diabetes, well controlled. CONSTITUTIONAL: No fever, chills. No weight gain or weight loss. PHYSICAL EXAMINATION: Pleasant gentleman, appears pale at present. No distress. Awake, alert. Vital signs as mentioned above. At the time of my examination, patient's temperature is 97.9, pulse 95, respirations 18, blood pressure 143/65, pulse ox of 99% on 2 L, and a 2nd temperature was 97.9, pulse 96, respirations 20, blood pressure 123/58, pulse ox 99% 2 L. HEENT: Normocephalic. Pupils reactive. Conjunctivae some pallor. No icterus. Nostrils clear. Oral cavity is dry. Ears reveal no drainage. Neck reveals no JVD, carotid bruits or thyromegaly. Chest examination is clear to auscultation and percussion. Cardiac normal S1, S2 with no gallops. Systolic murmur 2/6 left sternal border. Abdomen distended. Tender, especially right upper abdomen. Bowel sounds are active. No dullness on percussion. Extremities reveal trace edema. NEUROLOGIC: Awake, alert, oriented x3 with well-coordinated movements. LABORATORY DATA: CBC shows a white count 7.5, hemoglobin 11.9, platelets 566. Repeat was white count 10.9, hemoglobin 10.6, platelets 434. INR was normal. D-dimer was elevated to 2.19. Electrolytes are normal. Repeat potassium was 5. Potassium was 4.8 and BUN 14, creatinine 1.06, repeat prior to 2nd CT scan head BUN 17, creatinine 1.17. Normal hepatic function. Troponin negative. Albumin 3.4. CPK 26. EKG reveals sinus tachycardia, no acute changes. Patient's chest x-ray did not reveal any significant changes. CTA aorta looks good. No pulmonary embolism. CT of the abdomen as mentioned above. Hepatic mass. ASSESSMENT: 1. Portal hypotension with near syncope. 2. Anemia with no clear evidence of bleeding. 3. Diabetes mellitus. Blood sugar fair control. 4. Hepatic mass. PLAN: Continue present medical regimen. The patient will continue present medications with hydration. All patient's blood pressure medications. Blood sugars be controlled and monitored. Surgical consultation and will have invasive radiologist to evaluate for possible biopsy. The patient's condition is discussed with the patient and family including the liver mass and possibility of malignancy. Prognosis at present is guarded. MMODL / IJN: [id number] /
[2017-10-07] MEDS: HYDROmorphone 0.5 MG/0.5 ML SYRINGE IVP PRN ×3 (00:16→17:59)
[2017-10-07 06:15] LABS: Glucose,Whole Blood 154 mg/dL (75-99)
[2017-10-07] MEDS: SODIUM CHLORIDE 0.9% 1,000 ML IV SCH ×2 (06:22→20:05)
[2017-10-07 06:54] LABS: Anion Gap 10 mmol/L; Blood Urea Nitrogen 21 mg/dL (9-20); Calcium 9.2 mg/dL (8.4-10.2); Carbon Dioxide 24 mmol/L (22-30); Chloride 103 mmol/L (98-107); Glucose 148 mg/dL (74-99); Potassium 5.8 mmol/L (3.5-5.1); Sodium 137 mmol/L (137-145)
[2017-10-07 07:33] LABS: HCT 30.1 % (39.0-53.0); HGB 9.5 gm/dL (13.0-17.5); MCH 29.3 pg (25.0-35.0); MCHC 31.7 g/dL (31.0-37.0); MCV 92.4 fL (80.0-100.0); Mean Platelet Volume 6.9; Platelet Count 412 k/uL (150-450); RBC 3.26 m/uL (4.30-5.90); RDW 14.2 % (11.5-15.5); WBC 10.6 k/uL (3.8-10.6)
[2017-10-07] MEDS: METOPROLOL TARTRATE 25 MG TAB PO SCH ×2 (08:21→20:04)
[2017-10-07] MEDS: FAMOTIDINE 20 MG/2 ML VIAL IV SCH ×2 (08:22→20:05)
[2017-10-07] MEDS ORDERED: PIOGLITAZONE 30 MG TAB PO SCH (09:00)
[2017-10-07] MEDS ORDERED: PRAVASTATIN SODIUM 40 MG TAB PO SCH (09:00)
[2017-10-07] MEDS ORDERED: LISINOPRIL 20 MG TAB PO SCH (09:00)
[2017-10-07] MEDS ORDERED: amLODIPine 5 MG TAB PO SCH (09:00)
[2017-10-07] MEDS ORDERED: HYDROmorphone 2 MG/ML 1 ML SYRINGE IVP ONE (12:15)
--- NOTE | 2017-10-07 12:27 | US ---
EXAMINATION TYPE: US biopsy liver DATE OF EXAM: 10/07/2017 HISTORY: Liver mass. FINDINGS: Maximal barrier technique was utilized. The skin overlying a suitable path to the patient' s mass was localized with ultrasound and the overlying skin prepped and draped. Ultrasound was utili zed with sterile technique. Lidocaine was used for local anesthesia. A skin emery was made with a sc alpel. An 18-gauge needle was advanced under direct ultrasound guidance and core specimen obtained o f the mass. Specimen submitted in formalin to Pathology. Following the procedure, hemostasis achiev ed and the patient is discharged in stable condition without complication. IMPRESSION:STATUS POST ULTRASOUND GUIDED CORE BIOPSY OF liver MASS, PATHOLOGY IS PENDING. THIS PROCE DURE IS PERFORMED BY THE UNDERSIGNED.
[2017-10-07 12:45] LABS: Glucose,Whole Blood 167 mg/dL (75-99)
[2017-10-07] MEDS: MULTIVITAMINS, THERA 1 EACH TAB PO SCH (13:59)
[2017-10-07] MEDS: ONDANSETRON 4 MG/2 ML VIAL IVP PRN (16:14)
--- NOTE | 2017-10-07 16:51 | P.GSCN ---
History of Present Illness Consult date: 10/07/17 History of present illness: 72-year-old male presented to the emergency department with orthostatic hypotension and complaints of abdominal pain and right shoulder pain. I was called by Dr. Johnson last night about the patient, secondary to concern with his abdominal pain. Due to the patient's hypotension, there was concern that there may be an intra-abdominal bleed. CT of the abdomen and pelvis was performed that did illustrate fluid in the abdomen with concern of a large hepatic mass. This was biopsied earlier today. The patient is currently in his hospital room with family members. He states that he began having right upper quadrant pain similar to when he had gallbladder disease. He states that the pain radiated to his right shoulder. He states that the pain was more intense. Currently, he states his pain is well-controlled. He denies any nausea and vomiting. He denies any change in appetite. He denies any change in bowel function. He states his last colonoscopy was within the last year. He has no additional complaints at this time. Review of Systems All systems: negative Past Medical History Past Medical History: Diabetes Mellitus, Hyperlipidemia, Hypertension, Osteoarthritis (OA) Additional Past Medical History / Comment(s): heart murmur History of Any Multi-Drug Resistant Organisms: None Reported Past Surgical History: Back Surgery Additional Past Surgical History / Comment(s): colonoscopy Past Anesthesia/Blood Transfusion Reactions: Previous Problems w/ Anesthesia Additional Past Anesthesia/Blood Transfusion Reaction / Comm: difficulty in past w/intubation-states was told has short neck, when intubation attempted orally they had difficulty & "took too long & lungs filled up w/fluid", was able to be intubated successfully nasally-this was back in the 's Past Psychological History: No Psychological Hx Reported Smoking Status: Never smoker Past Alcohol Use History: Occasional Past Drug Use History: None Reported - Past Family History Sister(s) Family Medical History: Cancer Medications and Allergies Home Medications Medication Instructions Recorded Confirmed Type Acetaminophen [Tylenol] 325 mg PO Q4H PRN 12/31/16 10/06/17 History Ibuprofen [Motrin] 800 mg PO BID PRN 12/31/16 10/06/17 History Pioglitazone [Actos] 30 mg PO DAILY 12/31/16 10/06/17 History Pravastatin Sodium [Pravachol] 40 mg PO DAILY 12/31/16 10/06/17 History Multivitamin [Men's Multi-Vitamin] 1 tab PO DAILY 10/06/17 10/06/17 History amLODIPine BESYLATE/BENAZEPRIL 1 tab PO DAILY 10/06/17 10/06/17 History [amLODIPine BESYLATE/BENAZEPRIL 5-40 mg] metFORMIN HCL ER [Glucophage Xr] 500 mg PO BID 10/06/17 10/06/17 History Allergies Allergy/AdvReac Type Severity Reaction Status Date / Time morphine AdvReac Nausea & Verified 10/06/17 10:02 Vomiting Surgical - Exam Osteopathic Statement: *. No significant issues noted on an osteopathic structural exam other than those noted in the History and Physical/Consult. Vital Signs Temp Pulse Resp Pulse Ox 97.1 F L 107 H 16 100 10/06/17 10:00 10/06/17 10:00 10/06/17 10:00 10/06/17 10:00 - General well developed, well nourished, no distress - Eyes PERRL, normal ocular movement - Neck no masses, no bruits, trachea midline - Respiratory No difficulty with respiration - Abdomen Soft, nontender, mildly distended, no rebound, no guarding - Psychiatric oriented to time, oriented to person, oriented to place, speech is normal, memory intact Results - Labs 10/07/17 06:10 10/07/17 06:10 Abnormal Lab Results - Last 24 Hours (Table) 10/06/17 10/06/17 10/06/17 Range/Units 19:05 19:05 23:10 WBC 10.9 H (3.8-10.6) k/uL RBC 3.61 L (4.30-5.90) m/uL Hgb 10.6 L (13.0-17.5) gm/dL Hct 32.6 L (39.0-53.0) % Potassium 5.8 H (3.5-5.1) mmol/L BUN (9-20) mg/dL Creatinine (0.66-1.25) mg/dL Glucose 172 H (74-99) mg/dL POC Glucose (mg/dL) 158 H (75-99) mg/dL Total Protein 6.2 L (6.3-8.2) g/dL Albumin 3.4 L (3.5-5.0) g/dL 10/07/17 10/07/17 10/07/17 Range/Units 06:10 06:10 06:10 WBC (3.8-10.6) k/uL RBC 3.26 L (4.30-5.90) m/uL Hgb 9.5 L (13.0-17.5) gm/dL Hct 30.1 L (39.0-53.0) % Potassium 5.8 H (3.5-5.1) mmol/L BUN 21 H (9-20) mg/dL Creatinine 1.28 H (0.66-1.25) mg/dL Glucose 148 H (74-99) mg/dL POC Glucose (mg/dL) 154 H (75-99) mg/dL Total Protein (6.3-8.2) g/dL Albumin (3.5-5.0) g/dL 10/07/17 Range/Units 12:42 WBC (3.8-10.6) k/uL RBC (4.30-5.90) m/uL Hgb (13.0-17.5) gm/dL Hct (39.0-53.0) % Potassium (3.5-5.1) mmol/L BUN (9-20) mg/dL Creatinine (0.66-1.25) mg/dL Glucose (74-99) mg/dL POC Glucose (mg/dL) 167 H (75-99) mg/dL Total Protein (6.3-8.2) g/dL Albumin (3.5-5.0) g/dL Diabetes panel 10/06/17 10/07/17 Range/Units 19:05 06:10 Sodium 137 137 (137-145) mmol/L Potassium 5.8 H 5.8 H (3.5-5.1) mmol/L Chloride 104 103 (98-107) mmol/L Carbon Dioxide 24 24 (22-30) mmol/L BUN 17 21 H (9-20) mg/dL Creatinine 1.17 1.28 H (0.66-1.25) mg/dL Glucose 172 H 148 H (74-99) mg/dL Calcium 9.8 9.2 (8.4-10.2) mg/dL AST 40 (17-59) U/L ALT 55 (21-72) U/L Alkaline Phosphatase 73 (38-126) U/L Total Protein 6.2 L (6.3-8.2) g/dL Albumin 3.4 L (3.5-5.0) g/dL Calcium panel 10/06/17 10/07/17 Range/Units 19:05 06:10 Calcium 9.8 9.2 (8.4-10.2) mg/dL Albumin 3.4 L (3.5-5.0) g/dL Pituitary panel 10/06/17 10/07/17 Range/Units 19:05 06:10 Sodium 137 137 (137-145) mmol/L Potassium 5.8 H 5.8 H (3.5-5.1) mmol/L Chloride 104 103 (98-107) mmol/L Carbon Dioxide 24 24 (22-30) mmol/L BUN 17 21 H (9-20) mg/dL Creatinine 1.17 1.28 H (0.66-1.25) mg/dL Glucose 172 H 148 H (74-99) mg/dL Calcium 9.8 9.2 (8.4-10.2) mg/dL Adrenal panel 10/06/17 10/07/17 Range/Units 19:05 06:10 Sodium 137 137 (137-145) mmol/L Potassium 5.8 H 5.8 H (3.5-5.1) mmol/L Chloride 104 103 (98-107) mmol/L Carbon Dioxide 24 24 (22-30) mmol/L BUN 17 21 H (9-20) mg/dL Creatinine 1.17 1.28 H (0.66-1.25) mg/dL Glucose 172 H 148 H (74-99) mg/dL Calcium 9.8 9.2 (8.4-10.2) mg/dL Total Bilirubin 0.5 (0.2-1.3) mg/dL AST 40 (17-59) U/L ALT 55 (21-72) U/L Alkaline Phosphatase 73 (38-126) U/L Total Protein 6.2 L (6.3-8.2) g/dL Albumin 3.4 L (3.5-5.0) g/dL - Imaging CT scan - abdomen: report reviewed, image reviewed CT scan - pelvis: report reviewed, image reviewed (CT of the abdomen and pelvis was reviewed. Large hepatic mass noted with fluid within the abdomen.) Assessment and Plan (1) Liver mass Current Visit: Yes Status: Acute Code(s): R16.0 - HEPATOMEGALY, NOT ELSEWHERE CLASSIFIED SNOMED Code(s): 715212750 Plan: 72-year-old male with recently diagnosed hepatic mass. - I did discuss this case with Dr. Johnson, the plan is for a interventional radiology biopsy of the hepatic mass. - Continue to follow hemoglobin - Once biopsy, recurrence, further recommendations to be made based on pathology - Medical management
[2017-10-07 16:52] LABS: Glucose,Whole Blood 151 mg/dL (75-99)
--- NOTE | 2017-10-07 20:01 | PN ---
PROGRESS NOTE ATTENDING PHYSICIAN: Dr. Mary Johnson. CHIEF COMPLAINT: Re-evaluation. HISTORY OF PRESENT ILLNESS: This is 72-year-old gentleman who was admitted to the hospital yesterday because of hypertension, near syncope with postural hypotension. The patient has received significant amount of IV fluids. Workup is indicated. The patient has a liver mass. The patient also has had previous history of asbestosis and has evidence of some plaque formation in the lungs. The patient denies any other symptoms today. He feels better. The patient was assisted to stand up. His heart rates was about 113 with no postural hypotension. The patient denies any symptoms of dizziness. He is feeling better. REVIEW OF SYSTEMS: Neuro: Denies any headaches, dizziness. Psych no anxiety. Some apprehension regarding possible diagnosis of malignancy. Cardiac denies chest pain, angina, palpitation. Respiratory: Denies shortness of breath, cough, hemoptysis. GI no nausea, vomiting, abdominal pain, diarrhea. Did have a bowel movement. no symptoms of dysuria or hematuria. Is able to void. EXTREMITIES: Denies pain. Constitutional: No fever or chills. PHYSICAL EXAMINATION: Pleasant gentleman at present in no distress. Hemoglobin is 9.5, platelets 412. Potassium was high at 5.8, BUN 21, creatinine 1.28 off traction. Cardiac examination was normal S1, S2 with no gallop. Systolic murmur, right second intercostal space and apex. ABDOMEN: Soft. Bowel sounds present. No organomegaly. No abdominal bruits. Extremities revealed no edema. NEUROLOGIC: Awake, alert, oriented x3 with well-coordinated movements. Lung colby are clear. LABORATORY ASSESSMENT: BUN 21, creatinine 1.28, potassium 5.8. ASSESSMENT: 1. Near syncope secondary to postural hypotension resolved. 2. Aortic stenosis, moderate. 3. Liver mass. 4. Anemia. 5. Acute kidney injury, probably secondary to hypotension and use of contrast. 6. Hyperkalemia. PLAN: Continue present medical regimen. Patient's condition discussed with the patient. Prognosis is guarded. The patient is scheduled for a biopsy of the liver today. The patient has mentioned he is feeling better. We will continue present regimen. We will add some metoprolol to his regimen. Rest of the medications have been held. He is off GERARD inhibitor and he is not on any nonsteroidals. Prognosis remains guarded. MMODL / IJN: [id number] /
[2017-10-07 20:57] LABS: Glucose,Whole Blood 144 mg/dL (75-99)
[2017-10-08] MEDS: SODIUM CHLORIDE 0.9% 1,000 ML IV SCH ×3 (01:40→20:15)
[2017-10-08] MEDS: HYDROmorphone 0.5 MG/0.5 ML SYRINGE IVP PRN ×2 (04:29→16:16)
[2017-10-08] MEDS ORDERED: PNEUMOCOCCAL VACC-PNEUMOVAX 23 25 MCG/0.5 ML VIAL IM ONE (06:00)
[2017-10-08 06:02] LABS: Glucose,Whole Blood 134 mg/dL (75-99)
[2017-10-08] MEDS: METOPROLOL TARTRATE 25 MG TAB PO SCH ×2 (09:07→20:14)
[2017-10-08] MEDS: FAMOTIDINE 20 MG/2 ML VIAL IV SCH ×2 (09:10→20:14)
[2017-10-08 09:34] LABS: HCT 22.6 % (39.0-53.0); MCH 29.4 pg (25.0-35.0); MCHC 32.5 g/dL (31.0-37.0); MCV 90.4 fL (80.0-100.0); Mean Platelet Volume 6.7; RDW 14.4 % (11.5-15.5)
[2017-10-08 09:37] LABS: HGB 7.3 gm/dL (13.0-17.5); Platelet Count 203 k/uL (150-450)
[2017-10-08 10:14] LABS: Anion Gap 7 mmol/L; Blood Urea Nitrogen 16 mg/dL (9-20); Calcium 8.6 mg/dL (8.4-10.2); Carbon Dioxide 26 mmol/L (22-30); Chloride 102 mmol/L (98-107); Glucose 148 mg/dL (74-99); Potassium 4.3 mmol/L (3.5-5.1); Sodium 135 mmol/L (137-145)
[2017-10-08 11:33] LABS: Glucose,Whole Blood 133 mg/dL (75-99)
[2017-10-08] MEDS: MULTIVITAMINS, THERA 1 EACH TAB PO SCH (12:03)
--- NOTE | 2017-10-08 15:28 | P.PN ---
Subjective Progress Note Date: 10/08/17 Patient seen and examined at bedside. He states he is feeling better today. He denies any abdominal pain. He denies any nausea and vomiting. His is at bedside with him. Objective - Vital Signs Vital signs: Vital Signs Temp 97.3 F L 10/08/17 11:22 Pulse 80 10/08/17 11:22 Resp 15 10/08/17 11:22 BP 112/53 10/08/17 11:22 Pulse Ox 90 L 10/08/17 11:22 Intake & Output 10/07/17 10/08/17 10/08/17 18:59 06:59 18:59 Intake Total 120 1000 480 Output Total 200 Balance 120 800 480 Weight 100.5 kg Intake: Intake, IV Titration 500 Amount Sodium Chloride 0.9% 1, 500 000 ml @ 100 mls/hr IV . Q10H YUN Rx#:[id number] Oral 120 500 480 Output: Urine 200 Other: Voiding Method Urinal Toilet Toilet # Voids 1 1 1 - Constitutional General appearance: Present: cooperative, no acute distress - EENT Eyes: Present: anicteric sclerae ENT: Present: hearing grossly normal - Respiratory Details: No difficulty with respiration - Gastrointestinal Gastrointestinal Comment(s): Soft, mildly distended, nontender, no rebound, no guarding - Psychiatric Psychiatric: Present: A&O x's 3 - Labs CBC & Chem 7: 10/08/17 09:05 10/08/17 09:05 Labs: Abnormal Lab Results - Last 24 Hours (Table) 10/07/17 10/07/17 10/08/17 Range/Units 16:26 20:53 06:00 RBC (4.30-5.90) m/uL Hgb (13.0-17.5) gm/dL Hct (39.0-53.0) % Sodium (137-145) mmol/L Glucose (74-99) mg/dL POC Glucose (mg/dL) 151 H 144 H 134 H (75-99) mg/dL 10/08/17 10/08/17 10/08/17 Range/Units 09:05 09:05 11:30 RBC 2.50 L (4.30-5.90) m/uL Hgb 7.3 L D (13.0-17.5) gm/dL Hct 22.6 L (39.0-53.0) % Sodium 135 L (137-145) mmol/L Glucose 148 H (74-99) mg/dL POC Glucose (mg/dL) 133 H (75-99) mg/dL Assessment and Plan (1) Liver mass Current Visit: Yes Status: Acute Code(s): R16.0 - HEPATOMEGALY, NOT ELSEWHERE CLASSIFIED SNOMED Code(s): 457955180 Plan: 72-year-old male with recently diagnosed hepatic mass. - Continue to follow hemoglobin, 7.3 today - Once biopsy returns, further recommendations to be made based on pathology - Medical management
[2017-10-08 16:39] LABS: Glucose,Whole Blood 116 mg/dL (75-99)
[2017-10-08] MEDS ORDERED: MAGNESIUM HYDROXIDE 2,400 MG/10 ML CUP PO PRN (17:45)
[2017-10-08 20:56] LABS: Glucose,Whole Blood 170 mg/dL (75-99)
--- NOTE | 2017-10-08 22:41 | PN ---
PROGRESS NOTE CHIEF COMPLAINT: Re-evaluation. HISTORY OF PRESENT ILLNESS: This is a 72-year-old who was admitted to the hospital with abdominal pain. The patient's evaluation noted the patient has evidence of a hepatic mass. The patient had significant postural hypotension and syncopal episode prior to admission. There has been no evidence of any active bleeding, though the patient's hemoglobin is down to 7.9. The patient did have a liver biopsy yesterday, but results are pending. The patient denies any worsening upper abdominal pain. He has taken intermittent Dilaudid. The patient does have a history of aortic stenosis, moderate; previous history of diabetes mellitus, hypertension. REVIEW OF SYSTEMS: NEURO: Denies any headaches, dizziness. PSYCH: No anxiety. CARDIAC: No chest pain, angina, palpitation. RESPIRATORY: Denies shortness of breath, cough. GI: No nausea, vomiting. Decreased appetite. Some upper abdominal pain which is improved since admission. Patient has not had a bowel movement. : No symptoms of dysuria, hematuria. Improved output. EXTREMITIES: No pain, edema. CONSTITUTIONAL: No fever or chills. PHYSICAL EXAMINATION: Pleasant gentleman in no distress. Patient was evaluated twice today, both in the morning and evening. The patient's vital signs have remained stable. Temperature 98, pulse 86, respirations 15, blood pressure 145/67, pulse ox 95% this morning. This evening the patient's pulse was 80, respirations 16, blood pressure 110/58, pulse ox 91% on room air. HEENT: Normocephalic. NECK: No JVD. CHEST: Clear to auscultation and percussion. CARDIAC: Normal S1 and S2 with no gallops. Systolic murmur, right second intercostal space and in the apex. ABDOMEN: Mild tenderness, right upper abdomen. No worse than at the time of admission. Bowel sounds are active. Rectal examination reveals normal sphincter tone. The patient's stool is grayish in color, not melanotic. Extremities reveal trace edema. Neurologically awake, alert, oriented with well-coordinated movements. LABORATORY ASSESSMENT: CBC reveals hemoglobin of 7.3, white count 6.0, platelets 203. Sodium 135, BUN and creatinine back to normal. Glucose 148. ASSESSMENT: 1. Anemia with no clear evidence of bleeding. 2. Hepatic mass, status post biopsy, with now clinical symptoms of worsening right upper quadrant pain. 3. Acute kidney injury, resolved. 4. Diabetes mellitus. 5. Hypertension. 6. Aortic stenosis. PLAN: Continue present medical regimen. Patient's hemoglobin will be rechecked in the morning. Stool for occult blood. The patient will be given milk of magnesia today. Prognosis remains guarded. MMODL / IJN: [id number] /
[2017-10-09] MEDS: HYDROmorphone 0.5 MG/0.5 ML SYRINGE IVP PRN ×2 (00:14→08:38)
[2017-10-09] MEDS: SODIUM CHLORIDE 0.9% 1,000 ML IV SCH (05:41)
[2017-10-09 05:50] LABS: Glucose,Whole Blood 129 mg/dL (75-99)
[2017-10-09 06:25] LABS: Basophils % (A) 0 %; Eosinophils # (A) 0.1 k/uL (0-0.7); Eosinophils % (A) 2 %; HCT 22.1 % (39.0-53.0); HGB 7.2 gm/dL (13.0-17.5); Lymphocytes # (A) 0.8 k/uL (1.0-4.8); Lymphocytes % (A) 18 %; MCH 29.5 pg (25.0-35.0); MCHC 32.4 g/dL (31.0-37.0); Mean Platelet Volume 6.6; Monocytes # (A) 0.4 k/uL (0-1.0); Monocytes % (A) 8 %; Neutrophils # (A) 3.1 k/uL (1.3-7.7); Neutrophils % (A) 70 %; Platelet Count 192 k/uL (150-450); RBC 2.43 m/uL (4.30-5.90); RDW 15.2 % (11.5-15.5); WBC 4.5 k/uL (3.8-10.6)
[2017-10-09] MEDS: MULTIVITAMINS, THERA 1 EACH TAB PO SCH (07:53)
[2017-10-09] MEDS: FAMOTIDINE 20 MG/2 ML VIAL IV SCH (07:53)
[2017-10-09] MEDS: METOPROLOL TARTRATE 25 MG TAB PO SCH (07:54)
[2017-10-09 08:09] VITALS: BP 107/52; PULSE 85; RESP 18; TEMP 98.4
--- NOTE | 2017-10-26 14:14 | P.DS ---
Providers Date of admission: 10/06/17 18:42 Attending physician: Dex Johnson Consults: 10/06/17 22:09 Consult Physician Routine Consulting Provider: Philomena Zamudio Consult Reason/Comments: abdominal pain Do you want consulting provider notified?: Already Contacted 10/06/17 22:13 Consult Physician Routine Consulting Provider: Godfrey Brenner Reason/Comments: liver bx Do you want consulting provider notified?: Yes, Notify in am Primary care physician: Dex Johnson [facility] Course: This 72-year-old gentleman was admitted to the hospital with near syncope. It postural hypotension changes. No cervical emergency room workup included CAT scan of the chest. Which suggested possible splenic hematoma. A subsequent ultrasound did not suggest this. Patient however had dropped his hemoglobin and we did a CAT scan of the abdomen as it appeared to be more distended. He didn't reveal a significant hepatic mass. There was no evidence of any significant intra-abdominal bleeding. His hemoglobin hour dropped further to the hospital stay. With no evidence of any external bleeding. The patient was having some pain in the shoulder is radiation from the liver. It is possible the patient might have provided in the liver itself there was a hepatic lesion which was biopsied. The biopsy did show malignancy. This result was conveyed to the patient on the outpatient and adequate referrals made. Patient's general condition continued to improve in the hospital stay with no evidence of any external bleeding dizziness and cardiac arrhythmia. Patient discharged home to be followed up in outpatient. Final diagnosis to include 1. Near syncope 2. Postural hypotension. 3. Hepatic mass rule out malignancy 4. Anemia with acute blood loss source undetermined 5. Diabetes mellitus 6. Status post cervical and lumbar surgery Patient Condition at Discharge: Stable Plan - Discharge Summary Discharge Rx Participant: Yes New Discharge Prescriptions: New Metoprolol Tartrate [Lopressor] 25 mg PO BID #60 tab oxyCODONE-APAP 7.5-325MG [Percocet 7.5-325 mg] 1 tab PO Q6HR PRN #30 tab PRN Reason: Pain Continue metFORMIN HCL ER [Glucophage Xr] 500 mg PO BID Multivitamin [Men's Multi-Vitamin] 1 tab PO DAILY Discontinued Pravastatin Sodium [Pravachol] 40 mg PO DAILY Pioglitazone [Actos] 30 mg PO DAILY Acetaminophen [Tylenol] 325 mg PO Q4H PRN PRN Reason: Pain Ibuprofen [Motrin] 800 mg PO BID PRN PRN Reason: Pain amLODIPine BESYLATE/BENAZEPRIL [amLODIPine BESYLATE/BENAZEPRIL 5-40 mg] 1 tab PO DAILY Discharge Medication List Multivitamin [Men's Multi-Vitamin] 1 tab PO DAILY 10/06/17 [History] metFORMIN HCL ER [Glucophage Xr] 500 mg PO BID 10/06/17 [History] Metoprolol Tartrate [Lopressor] 25 mg PO BID #60 tab 10/09/17 [Rx] oxyCODONE-APAP 7.5-325MG [Percocet 7.5-325 mg] 1 tab PO Q6HR PRN #30 tab [Rx] Follow up Appointment(s)/Referral(s): Dex Johnson MD [Primary Care Provider] - 1-2 days (Office is closed. Please call to make appointment. ) Patient Instructions/Handouts: Syncope (DC) Discharge Disposition: HOME SELF-CARE
== END 2017-10-09 09:21 | disposition home or self-care (01) | DRG 312 ==
LOC: EC 09:56 → 6SEL 18:42
PROVIDERS: ADMIT Internal Medicine; ATTEND Internal Medicine
PROC: 0FB03ZX Excision of Liver, Percutaneous Approach, Diagnostic (ICD-10-PCS; principal; 2017-10-07)
PROC: 3E0234Z Introduction of Serum, Toxoid and Vaccine into Muscle, Percutaneous Approach (ICD-10-PCS; 2017-10-08)
DX: I95.1 Orthostatic hypotension (principal); N17.9 Acute kidney failure, unspecified; C22.9 Malignant neoplasm of liver, not specified as primary or secondary; D62 Acute posthemorrhagic anemia; E87.5 Hyperkalemia; J98.11 Atelectasis; E11.9 Type 2 diabetes mellitus without complications; E78.5 Hyperlipidemia, unspecified; I10 Essential (primary) hypertension; I35.0 Nonrheumatic aortic (valve) stenosis; J92.0 Pleural plaque with presence of asbestos; N40.0 Benign prostatic hyperplasia without lower urinary tract symptoms; M51.37 Other intervertebral disc degeneration, lumbosacral region; M19.90 Unspecified osteoarthritis, unspecified site; M47.9 Spondylosis, unspecified; Z23 Encounter for immunization; R62.7 Adult failure to thrive; Z79.84 Long term (current) use of oral hypoglycemic drugs; Z79.899 Other long term (current) drug therapy; Z88.5 Allergy status to narcotic agent; Z98.1 Arthrodesis status; Z82.49 Family history of ischemic heart disease and other diseases of the circulatory system
CPT/HCPCS: 36415; 47000; 71046; 71275; 74018; 74177; 76700; 76942; 80048; 80053; 82272; 82550; 82553; 83735; 84484; 85025; 85027; 85379; 85610; 85730; 88307; 88313; 88341; 88342; 90732; 93005; 96361; 96374; 96375; 99285

== ENCOUNTER → 2017-10-18 | Outpatient (CLI) | payer MEDICARE, BC ==
--- NOTE | 2017-10-20 16:50 | PE ---
Nuclear medicine PET/CT HISTORY: Liver cancer, initial Patient received 13.3 mCi F-18 intravenously in delayed scanning was performed from the skull base to the mid thighs. Localization and attenuation correction CT scan was performed. Correlation CT abdomen pelvis 10/06/2017, CT chest 10/06/2017 Neck and Chest: There is no suspicious hypermetabolic uptake. No evident adenopathy. No evident lung mass. Abdomen pelvis: The large mass seen within the liver is not well appreciated on noncontrast exam. The re is a small focus of hypermetabolic uptake present peripherally within SUV of approximately 5. Patient is post cholecystectomy. No evident retroperitoneal adenopathy. Uptake along the colon is lik marylou physiologic. There is fluid within the pelvis. Osseous structures are remarkable for postop change, degenerative disc disease and facet arthropathy in the lumbar spine. Some mild uptake noted at the level of the postop change. IMPRESSION: Only mild uptake associated with patient's known liver mass. Additional nonspecific findi ngs described above.
== END | disposition home or self-care (01) ==
LOC: RADPETMAIN 07:34
PROVIDERS: ATTEND Internal Medicine Hematology & Oncology
DX: C22.0 Liver cell carcinoma (principal); R93.3 Abnormal findings on diagnostic imaging of other parts of digestive tract; Z98.890 Other specified postprocedural states; Z90.49 Acquired absence of other specified parts of digestive tract
CPT/HCPCS: 78815; A9552

== ENCOUNTER → 2017-11-07 | Outpatient (CLI) | payer MEDICARE, BC ==
--- NOTE | 2017-11-07 10:47 | US ---
EXAMINATION TYPE: US venous doppler duplex LE BI DATE OF EXAM: 11/07/2017 10:20 AM COMPARISON: NONE CLINICAL HISTORY: Swelling Bilateral Lower Extremities R22.42 R22.41. SIDE PERFORMED: Bilateral TECHNIQUE: The lower extremity deep venous system is examined utilizing real time linear array sonog maryse with graded compression, doppler sonography and color-flow sonography. VESSELS IMAGED: External Iliac Vein (EIV) Common Femoral Vein Deep Femoral Vein Greater Saphenous Vein * Femoral Vein Popliteal Vein Small Saphenous Vein * Proximal Calf Veins (* superficial vessels) Grayscale, color doppler, spectral doppler imaging performed of the deep veins of the lower extremiti es. There is normal flow, compressibility, vascular waveforms. IMPRESSION: Right Leg: Negative for DVT Left Leg: Negative for DVT
== END | disposition home or self-care (01) ==
LOC: RADUSWWP 09:34
PROVIDERS: ATTEND Internal Medicine Hematology & Oncology
DX: R22.41 Localized swelling, mass and lump, right lower limb (principal); R22.42 Localized swelling, mass and lump, left lower limb
CPT/HCPCS: 93970

== ENCOUNTER 2018-04-03 16:55 | Inpatient (IN) | payer MEDICARE, BC ==
[2018-04-03] MEDS ORDERED: SODIUM CHLORIDE 0.9% 500 ML IV STA (17:13)
[2018-04-03] MEDS ORDERED: SODIUM CHLORIDE 0.9% 1,000 ML IV STA (17:13)
[2018-04-03] MEDS ORDERED: ONDANSETRON 4 MG/2 ML VIAL IVP STA ×2 (17:43→19:28)
--- NOTE | 2018-04-03 17:45 | ED ---
General Adult HPI - General Chief complaint: Nausea/Vomiting/Diarrhea Stated complaint: dehydration Time Seen by Provider: 04/03/18 17:13 Source: patient, RN notes reviewed, old records reviewed Mode of arrival: wheelchair Limitations: no limitations - History of Present Illness Initial comments: 72-year-old male with history of metastatic liver cancer presents for evaluation nausea vomiting and concern for dehydration. Patient states that his cancer is inoperable and untreatable. He has been evaluated at the [facility] and has been released from their care at this time. He states over the past several days he's had several episodes of nausea and vomiting with any oral liquids. He had one episode of diarrhea earlier today. No fever or chills. He is currently not on chemotherapy or treatment for his cancer. Denies any pain. No chest pain or abdominal pain. Patient is requesting IV hydration. - Related Data Home Medications Medication Instructions Recorded Confirmed Multivitamin [Men's Multi-Vitamin] 1 tab PO DAILY 10/06/17 04/03/18 Famotidine [Pepcid] 20 mg PO BID 04/03/18 04/03/18 Furosemide [Lasix] 40 mg PO DAILY 04/03/18 04/03/18 fentaNYL 12MCG/HR PATCH [Duragesic 1 patch TRANSDERM Q72H 04/03/18 04/03/18 12MCG/HR] metFORMIN HCL [Glucophage] 500 mg PO BID 04/03/18 04/03/18 oxyCODONE-APAP 7.5-325MG [Percocet 1 tab PO Q6HR PRN 04/03/18 04/03/18 7.5-325 mg] Previous Rx's Medication Instructions Recorded Metoprolol Tartrate [Lopressor] 25 mg PO BID #60 tab 10/09/17 Ondansetron Odt [Zofran Odt] 4 mg PO Q8HR PRN #10 tab 04/03/18 Allergies Allergy/AdvReac Type Severity Reaction Status Date / Time morphine AdvReac Nausea & Verified 04/03/18 17:19 Vomiting Review of Systems ROS Statement: Those systems with pertinent positive or pertinent negative responses have been documented in the HPI. ROS Other: All systems not noted in ROS Statement are negative. Past Medical History Past Medical History: Cancer, Diabetes Mellitus, Hyperlipidemia, Hypertension, Osteoarthritis (OA) Additional Past Medical History / Comment(s): heart murmur Liver History of Any Multi-Drug Resistant Organisms: None Reported Past Surgical History: Back Surgery, Cholecystectomy Additional Past Surgical History / Comment(s): colonoscopy, neck surgery Past Anesthesia/Blood Transfusion Reactions: Previous Problems w/ Anesthesia Additional Past Anesthesia/Blood Transfusion Reaction / Comment(s): difficulty in past w/intubation-states was told has short neck, when intubation attempted orally they had difficulty & "took too long & lungs filled up w/fluid", was able to be intubated successfully nasally-this was back in the Past Psychological History: No Psychological Hx Reported Smoking Status: Never smoker Past Alcohol Use History: Occasional Past Drug Use History: None Reported - Past Family History Sister(s) Family Medical History: Cancer General Exam Limitations: no limitations General appearance: alert, in no apparent distress Head exam: Present: atraumatic, normocephalic Eye exam: Present: normal appearance, PERRL, EOMI. Absent: scleral icterus ENT exam: Present: mucous membranes dry Neck exam: Present: normal inspection. Absent: tenderness, meningismus Respiratory exam: Present: normal lung sounds bilaterally. Absent: respiratory distress Cardiovascular Exam: Present: regular rate, normal rhythm GI/Abdominal exam: Present: soft, distended. Absent: tenderness, guarding, rebound Extremities exam: Present: pedal edema Neurological exam: Present: alert, oriented X3, CN II-XII intact. Absent: motor sensory deficit Psychiatric exam: Present: normal affect, normal mood Skin exam: Present: warm, dry, intact. Absent: cyanosis, diaphoretic Course Vital Signs 04/03/18 04/03/18 04/03/18 17:09 17:56 20:19 Temperature 98.6 F Pulse Rate 98 90 86 Respiratory 18 16 15 Rate Blood Pressure 152/72 164/70 132/64 O2 Sat by Pulse 99 98 96 Oximetry Medical Decision Making - Medical Decision Making 72-year-old male with history of metastatic liver cancer presenting for evaluation of nausea vomiting, concern for dehydration and requesting IV fluids. 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 1.5 L of normal saline. Laboratory studies are obtained, white blood cell count 3.6, stable hemoglobin, normal electrolytes. AST and LTR mildly elevated. On reevaluation, patient still has mild abdominal pain and persistent nausea. He will be kept in observation for symptomatic treatment. Dr. Johnson will accept admission. - Lab Data Result diagrams: 04/03/18 17:10 04/03/18 17:10 Lab Results 04/03/18 04/03/18 04/03/18 Range/Units 17:10 17:10 17:10 WBC 3.6 L (3.8-10.6) k/uL RBC 3.92 L (4.30-5.90) m/uL Hgb 11.8 L (13.0-17.5) gm/dL Hct 36.6 L (39.0-53.0) % MCV 93.4 (80.0-100.0) fL MCH 30.1 (25.0-35.0) pg MCHC 32.2 (31.0-37.0) g/dL RDW 18.3 H (11.5-15.5) % Plt Count 238 (150-450) k/uL Neutrophils % 70 % Lymphocytes % 22 % Monocytes % 4 % Eosinophils % 2 % Basophils % 1 % Neutrophils # 2.6 (1.3-7.7) k/uL Lymphocytes # 0.8 L (1.0-4.8) k/uL Monocytes # 0.1 (0-1.0) k/uL Eosinophils # 0.1 (0-0.7) k/uL Basophils # 0.0 (0-0.2) k/uL Anisocytosis Slight Sodium 138 (137-145) mmol/L Potassium 4.2 (3.5-5.1) mmol/L Chloride 107 (98-107) mmol/L Carbon Dioxide 26 (22-30) mmol/L Anion Gap 5 mmol/L BUN 19 (9-20) mg/dL Creatinine 0.80 (0.66-1.25) mg/dL Est GFR (CKD-EPI)AfAm >90 (>60 ml/min/1.73 sqM) Est GFR (CKD-EPI)NonAf >90 (>60 ml/min/1.73 sqM) Glucose 128 H (74-99) mg/dL Plasma Lactic Acid Jose F 1.1 (0.7-2.0) mmol/L Calcium 8.8 (8.4-10.2) mg/dL Total Bilirubin 1.2 (0.2-1.3) mg/dL AST 122 H (17-59) U/L ALT 79 H (21-72) U/L Alkaline Phosphatase 93 (38-126) U/L Total Protein 6.3 (6.3-8.2) g/dL Albumin 3.1 L (3.5-5.0) g/dL Lipase 125 (23-300) U/L Disposition Clinical Impression: Dehydration, Nausea & vomiting Disposition: ADMITTED IP TO THIS HOSP Condition: Stable Instructions: Acute Nausea and Vomiting (ED) Prescriptions: Ondansetron Odt [Zofran Odt] 4 mg PO Q8HR PRN #10 tab PRN Reason: Vomiting Is patient prescribed a controlled substance at d/c from ED?: No Referrals: Dex Johnson MD [Primary Care Provider] - 1-2 days Time of Disposition: 20:08 Decision to Admit Reason: Admit from EC Decision Date: 04/03/18 Decision Time: 20:10
[2018-04-03 17:47] LABS: Anisocytosis Slight; Basophils % (A) 1 %; Eosinophils # (A) 0.1 k/uL (0-0.7); Eosinophils % (A) 2 %; HCT 36.6 % (39.0-53.0); HGB 11.8 gm/dL (13.0-17.5); Lymphocytes # (A) 0.8 k/uL (1.0-4.8); Lymphocytes % (A) 22 %; MCH 30.1 pg (25.0-35.0); MCHC 32.2 g/dL (31.0-37.0); MCV 93.4 fL (80.0-100.0); Mean Platelet Volume 6.4; Monocytes # (A) 0.1 k/uL (0-1.0); Monocytes % (A) 4 %; Neutrophils # (A) 2.6 k/uL (1.3-7.7); Neutrophils % (A) 70 %; Platelet Count 238 k/uL (150-450); RBC 3.92 m/uL (4.30-5.90); RDW 18.3 % (11.5-15.5); WBC 3.6 k/uL (3.8-10.6)
[2018-04-03 17:59] LABS: ALT 79 U/L (21-72); AST 122 U/L (17-59); Albumin 3.1 g/dL (3.5-5.0); Alkaline Phosphatase 93 U/L (38-126); Anion Gap 5 mmol/L; Blood Urea Nitrogen 19 mg/dL (9-20); Calcium 8.8 mg/dL (8.4-10.2); Carbon Dioxide 26 mmol/L (22-30); Chloride 107 mmol/L (98-107); Glucose 128 mg/dL (74-99); Lipase 125 U/L (23-300); Potassium 4.2 mmol/L (3.5-5.1); Sodium 138 mmol/L (137-145); Total Bilirubin 1.2 mg/dL (0.2-1.3); Total Protein 6.3 g/dL (6.3-8.2)
[2018-04-03] MEDS ORDERED: SODIUM CHLORIDE 0.9% 500 ML IV ONE (18:52)
[2018-04-03] MEDS ORDERED: FAMOTIDINE 20 MG/2 ML VIAL IV STA (19:27)
[2018-04-03] MEDS ORDERED: HYDROmorphone 1 MG/ML 1 ML SYRINGE IVP STA (20:14)
[2018-04-03] MEDS ORDERED: ONDANSETRON 4 MG/2 ML VIAL IVP PRN (21:04)
[2018-04-03] MEDS ORDERED: NALOXONE 0.4 MG/ML 1 ML VIAL IV PRN (21:04)
[2018-04-03] MEDS: HYDROmorphone 1 MG/ML 1 ML SYRINGE IVP PRN (23:51)
[2018-04-04] MEDS: HYDROmorphone 1 MG/ML 1 ML SYRINGE IVP PRN ×6 (02:57→22:03)
[2018-04-04] MEDS: ONDANSETRON 4 MG/2 ML VIAL IVP PRN ×4 (08:26→23:55)
[2018-04-04 09:55] LABS: Anisocytosis Slight; HCT 35.6 % (39.0-53.0); MCH 29.9 pg (25.0-35.0); MCHC 30.8 g/dL (31.0-37.0); MCV 96.9 fL (80.0-100.0); Macrocytosis Slight; Mean Platelet Volume 6.5; Platelet Count 221 k/uL (150-450); RBC 3.68 m/uL (4.30-5.90); RDW 18.4 % (11.5-15.5); WBC 3.3 k/uL (3.8-10.6)
[2018-04-04 10:04] LABS: Anion Gap 5 mmol/L; Blood Urea Nitrogen 19 mg/dL (9-20); Calcium 8.5 mg/dL (8.4-10.2); Carbon Dioxide 27 mmol/L (22-30); Chloride 109 mmol/L (98-107); Glucose 116 mg/dL (74-99); Sodium 141 mmol/L (137-145)
[2018-04-04] MEDS: HEPARIN SODIUM,PORCINE 5,000 UNIT/ML 1 ML VIAL SQ SCH ×3 (10:31→23:39)
[2018-04-04] MEDS: FAMOTIDINE 20 MG/2 ML VIAL IV SCH ×2 (10:31→20:49)
[2018-04-04] MEDS: METOPROLOL TARTRATE 25 MG TAB PO SCH ×2 (10:31→20:49)
[2018-04-04] MEDS: SCOPOLAMINE 1.5MG/72HR PATCH TRANSDERM SCH (10:31)
--- NOTE | 2018-04-04 13:28 | HP ---
HISTORY AND PHYSICAL CHIEF COMPLAINT: Nausea, vomiting. HISTORY OF PRESENT ILLNESS: This is a 72-year-old gentleman who was admitted to the hospital after presenting to the emergency room. For the past couple days, he has been vomiting and nauseous. The patient has a known history of carcinoma of the liver with metastatic disease locally and inoperable. The patient had tried chemotherapy without much tolerance and in view of this he had elected to do alternative medical therapy. He basically uses cannabis and supplements to control his disease process. He has been seen at [facility]. He had similar symptoms for which he was seen there a few months ago. The patient has not been seen by me for almost about 2 months. He appears to have lost even more weight. He has lost about 60 pounds of weight since this was diagnosed back in September. The patient denies any fever, chills. Does have some epigastric pain. The patient is on fentanyl, which he has not used for the past few days. The patient is also on Percocet. He denies any headaches. Denies any dizziness. The patient did not have a bowel movement for a few days except yesterday he had a small bowel movement. The vomitus is mostly bilious, not coffee-ground. He basically understands his illness is terminal, but he had a hospice nurse at his house yesterday to discuss palliative care. PAST MEDICAL HISTORY: Past medical history is significant for a history of diagnosis of liver cancer back in September 2017. He has a history of diabetes mellitus, which was very well controlled at present, does not need any medical therapy. History of hypertension, degenerative arthritis affecting the cervical and lumbar spine and history of BPH. PAST SURGICAL HISTORY: Past surgical history is significant for bilateral cataract surgery, lumbar fusion x3, also cervical spinal stenosis back in May 2017. PERSONAL HISTORY: Never smoker. Alcohol none. FAMILY MEDICAL HISTORY: Mother at the age of 74. She had COPD, peripheral arterial disease and diabetes mellitus. Father at the age of 74, coronary artery disease, diabetes mellitus. The patient has a brother at 73 with multiple sclerosis. A brother at the age of 27 motor vehicle accident. A brother 65 with a history of diabetes mellitus, bipolar disorder. A sister of 59 with history of diabetes mellitus. A sister of 46 with a history of bipolar disorder and diabetes mellitus. The patient has 4 sons and 1 daughter and all in good health. ALLERGIES: Sensitive to MORPHINE. Tolerates Percocet well. MEDICATIONS AT HOME: 1. Percocet 1 q.6 p.r.n. 2. Metformin 500 mg b.i.d. 3. Fentanyl 12 mcg every 72 hours. \. 4. Multivitamins daily. 5. Metoprolol tartrate 25 mg b.i.d. 6. Lasix 40 mg daily. 7. Pepcid 20 mg b.i.d. 8. Zofran ODT p.r.n. q.8. VACCINATION HISTORY: Patient had a Pneumovax in September 2017. REVIEW OF SYSTEMS: NEURO: Has some occasional headache when he strains much. Denies any double vision. Patient is blind in one eye. Denies any symptoms of TIA, syncope, seizures. PSYCH: Some anxiety. No depression. CARDIAC: Denies chest pain, angina, palpitation. RESPIRATORY: Denies shortness of breath. Does have some dyspnea on exertion. No cough, hemoptysis. GI: Present complaint of nausea, vomiting, some epigastric pain. No diarrhea. Some constipation. No melena or hematochezia. : No symptoms of dysuria, hematuria, urgency, frequency. EXTREMITIES: Denies pain, edema. CONSTITUTIONAL: No fever or chills. HEMATOLOGICAL: No anemia or bleeding disorder. ENDOCRINE: History of diabetes mellitus. SKIN: No rash. PHYSICAL EXAMINATION: Pleasant gentleman who appears cachectic with temporal wasting, sunken eyes. He is awake, alert, oriented x3. Vital signs reveals temperature 97.9, pulse 94, respirations 20, blood pressure 156/75, pulse ox 96% on room air. HEENT: Normocephalic. Neck is supple. Pupils reactive. Oral cavity is dry. Neck reveals no JVD, carotid bruits or thyromegaly. Chest examination is clear to auscultation and percussion. CARDIAC: Normal S1, S2 with no gallops, murmurs, rubs. ABDOMEN: Soft. Mild tenderness in the epigastric area. Bowel sounds are active. Extremities reveal no edema, no tenderness. NEUROLOGICALLY: Awake, alert, oriented x3 with well-coordinated movements. LABORATORY ASSESSMENT: CBC which revealed a white count of 3.6, platelets 238. Electrolytes are normal BUN and creatinine normal. Glucose 128. AST 122, ALT 79, lipase 125, albumin 3.1. ASSESSMENT: 1. Intractable nausea, vomiting. 2. Primary liver cancer. 3. Cachexia malignancy. 4. Mild dehydration. 5. Leukopenia. 6. Mild anemia, chronic. 7. History of diabetes mellitus. PLAN: The patient admitted to the hospital. Will be given IV fluids, antiemetics and pain control. The patient's condition is discussed with the patient. Prognosis remains guarded. The patient will be placed on Pepcid, scopolamine. Continue on Zofran, Dilaudid as needed for pain and fentanyl. Prognosis remains guarded. MMODL / IJN: [id number] /
[2018-04-04 16:29] VITALS: BMI 26.4
[2018-04-05] MEDS: HYDROmorphone 1 MG/ML 1 ML SYRINGE IVP PRN ×6 (01:43→21:46)
[2018-04-05] MEDS: ONDANSETRON 4 MG/2 ML VIAL IVP PRN ×3 (06:34→18:27)
[2018-04-05] MEDS: METOPROLOL TARTRATE 25 MG TAB PO SCH ×2 (07:54→21:36)
[2018-04-05] MEDS: FAMOTIDINE 20 MG/2 ML VIAL IV SCH ×2 (07:56→21:36)
[2018-04-05] MEDS: HEPARIN SODIUM,PORCINE 5,000 UNIT/ML 1 ML VIAL SQ SCH ×3 (07:56→23:38)
[2018-04-05] MEDS ORDERED: PROMETHAZINE 6.25MG/5ML 147.5 MG/118 ML BOTTLE PO PRN (10:26)
--- NOTE | 2018-04-05 14:10 | P.PN ---
Subjective Progress Note Date: 04/05/18 Principal diagnosis: Nausea vomiting This 72-year-old gentleman was admitted to the hospital with persistent nausea and some vomiting. The patient has been started on scopolamine does receive Zofran. He has history of hepatic CA. It is inoperable. Patient was not tolerant of any chemotherapy. The patient says he is feeling better today hasn' t vomited. He hasn't really had much to eat he has had some pop. Patient does get nauseous when he starts talking. His abdominal pain is improved. Has had no bowel movement yet. The patient really is not vomiting much is mostly nauseous and wretches off and on. The patient is on had a pneumatics and Pepcid. Has no fever chills and no evidence of hypercalcemia denies any headache. No photophobia. REVIEW OF SYSTEMS: Neuro: Denies any headaches dizziness. Psych: Denies anxiety depression feels oriented. Cardiac: Denies chest pain and angina palpitations. Respiratory: Denies shortness of breath cough. GI: Pertinent complain of some nausea and retching abdominal pain improved vomiting improved. No diarrhea has constipation. : Denies dysuria hematuria. Extremities: Denies pain. No edema. Skin: Intact. Constitutional: No fever, chills. Objective - Vital Signs Vital signs: Vital Signs Temp 98.3 F 04/05/18 07:09 Pulse 62 04/05/18 07:09 Resp 17 04/05/18 07:09 BP 96/58 04/05/18 07:09 Pulse Ox 92 L 04/05/18 07:09 Intake & Output 04/04/18 04/05/18 04/05/18 18:59 06:59 18:59 Intake Total 400 300 Output Total 1 Balance 399 300 Weight 76.657 kg Intake: Intake, IV Titration 400 Amount Sodium Chloride 0.9% 1, 400 000 ml @ 75 mls/hr IV . [id number] STA Rx#:[id number] Oral 300 Output: Urine 1 Other: Voiding Method Urinal # Voids 1 2 # Emeses 2 PHYSICAL EXAMINATION: Cooperative, at present in no acute distress. HEENT: Neck supple. No JVD. Chest: Clear to auscultation percussion. Cardiac: Normal S1-S2 no gallops no murmur . Abdomen: Soft bowel sounds present. Extremities: No edema no tenderness Neurologically: Awake, alert, oriented with well-coordinated movements. - Labs CBC & Chem 7: 04/04/18 09:35 04/04/18 09:35 Assessment and Plan Assessment: ASSESSMENT: 1. Persistent nausea vomiting. 2. Primary carcinoma of the liver. 3. 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 4. History of essential hypertension. 5. History of diabetes mellitus not requiring medications now. PLAN: Continue present medical regimen was scopolamine Zofran. We'll add Phenergan. Continue IV hydration prognosis remains guarded.
[2018-04-06] MEDS: HYDROmorphone 1 MG/ML 1 ML SYRINGE IVP PRN ×3 (03:14→21:41)
[2018-04-06] MEDS: FAMOTIDINE 20 MG/2 ML VIAL IV SCH ×2 (07:47→21:37)
[2018-04-06] MEDS: HEPARIN SODIUM,PORCINE 5,000 UNIT/ML 1 ML VIAL SQ SCH ×3 (07:47→23:04)
[2018-04-06] MEDS: METOPROLOL TARTRATE 25 MG TAB PO SCH ×2 (07:48→22:37)
[2018-04-06 09:06] LABS: Anion Gap 4 mmol/L; Blood Urea Nitrogen 20 mg/dL (9-20); Calcium 8.3 mg/dL (8.4-10.2); Carbon Dioxide 24 mmol/L (22-30); Chloride 110 mmol/L (98-107); Glucose 77 mg/dL (74-99); Potassium 4.3 mmol/L (3.5-5.1); Sodium 138 mmol/L (137-145)
[2018-04-06] MEDS: ONDANSETRON 4 MG/2 ML VIAL IVP PRN ×2 (13:14→21:41)
--- NOTE | 2018-04-06 22:00 | PN ---
PROGRESS NOTE CHIEF COMPLAINT: Re-evaluation. HISTORY OF PRESENT ILLNESS: This 72-year-old gentleman feels better today. He denies any nausea or vomiting this morning. He has actually ordered some breakfast to try it out. Denies any abdominal pain. The patient has hepatic malignancy. No hypercalcemia. No bowel movements yet, but no suggestion of bowel obstruction. REVIEW OF SYSTEMS: NEURO: Denies any headaches, dizziness. PSYCH: No anxiety. CARDIAC: No chest pain, angina, palpitations. RESPIRATORY: Denies shortness of breath, cough, hemoptysis. GI: No nausea, vomiting, abdominal pain, diarrhea. No bowel movement. : No symptoms of dysuria or hematuria, urgency or frequency. EXTREMITIES: Denies pain, edema. CONSTITUTIONAL: No fever, chills. PHYSICAL EXAMINATION: Pleasant gentleman in no distress. Vital signs reveal temperature 97.6, pulse 74, respirations 18, blood pressure 105/55, pulse ox 97% on room air. HEENT: Normocephalic. NECK: No JVD. CHEST EXAMINATION: Clear to auscultation. CARDIAC: Normal S1, S2 with no gallop. Systolic murmur, right second intercostal space and the apex. ABDOMEN: Soft. Bowel sounds are active. Extremities reveal no edema; however, patient does have some dependent edema on the dependent lower thoracic and lumbar area. Neurologically awake, alert, oriented x3 with well-coordinated movements. LABORATORY ASSESSMENT: Electrolytes normal. BUN 20, creatinine 0.9. ASSESSMENT: 1. Persistent nausea and vomiting, improving. 2. Carcinoma of the liver, primary. 3. Weight loss secondary to malignancy. 4. History of diabetes mellitus, not requiring any further medication. 5. History of hypertension. PLAN: The patient is stable. Continue present medical regimen. Patient's condition was discussed with the patient. Prognosis guarded. We will see how he does with his meals today. If he is able to keep food down today, then we will probably discharge him home tomorrow. MMODL / IJN: [id number] /
[2018-04-07] MEDS ORDERED: IOPAMIDOL-300 CONTRAST 30 ML VIAL (ORAL USE) PO PRN (08:16)
[2018-04-07] MEDS: HEPARIN SODIUM,PORCINE 5,000 UNIT/ML 1 ML VIAL SQ SCH ×3 (08:23→23:07)
[2018-04-07] MEDS: METOPROLOL TARTRATE 25 MG TAB PO SCH ×2 (08:23→20:14)
[2018-04-07] MEDS: SCOPOLAMINE 1.5MG/72HR PATCH TRANSDERM SCH (08:23)
[2018-04-07] MEDS: FAMOTIDINE 20 MG/2 ML VIAL IV SCH ×2 (08:23→20:13)
[2018-04-07] MEDS: METOCLOPRAMIDE 10 MG TAB PO SCH ×2 (12:44→17:49)
[2018-04-07] MEDS: HYDROmorphone 1 MG/ML 1 ML SYRINGE IVP PRN (21:29)
[2018-04-07] MEDS: ONDANSETRON 4 MG/2 ML VIAL IVP PRN (23:06)
--- NOTE | 2018-04-07 23:34 | PN ---
PROGRESS NOTE CHIEF COMPLAINT: Re-evaluation. HISTORY OF PRESENT ILLNESS: This 72-year-old gentleman was admitted to the hospital with persistent nausea and vomiting. He has hepatocellular carcinoma. He was actually doing well yesterday, tolerating his food well, until after his dinner he did vomit. The patient this morning has had no nausea or vomiting. He did have a bowel movement and no problem with urination. The patient otherwise denies any fever or chills. Denies any abdominal pain. PHYSICAL EXAMINATION: A 72-year-old gentleman who appears chronically ill, appears cachectic, in no distress. Vital signs revealed temperature 97.6, pulse 74, respiration 18, blood pressure 105/55, pulse ox 97% on room air. HEENT: Normocephalic. NECK: Supple. No JVD. No supraclavicular lymphadenopathy. CHEST: Clear to auscultation and percussion. CARDIAC: Normal S1, S2. No gallops. Systolic murmur, right second intercostal space and apex. ABDOMEN: Protuberant, soft. No tenderness. Bowel sounds are active. No masses palpable. Extremities reveal no edema. No tenderness. Neurologically awake, alert, oriented with well-coordinated movements bilaterally. REVIEW OF SYSTEMS: NEURO: Denies any headaches, dizziness. PSYCH: No anxiety or depression. CARDIAC: Denies chest pain, angina, palpitations. RESPIRATORY: Denies shortness of breath, cough, hemoptysis. GI: Present complaint of frequent nausea, vomiting. No abdominal pain now. No diarrhea. Did have a bowel movement today. No hematochezia, melena. : No symptoms of dysuria or hematuria. EXTREMITIES: Denies pain. Does have generalized weakness. CONSTITUTIONAL: No fever or chills. LABORATORY ASSESSMENT: None today. ASSESSMENT: 1. Persistent nausea, vomiting. 2. Hepatocellular carcinoma. 3. 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 4. Previous history of diabetes mellitus, not requiring medication. 5. History of hypertension. PLAN: Patient at present continues to have nausea and vomiting. We will switch the patient over to Reglan and see if that will help. Meanwhile, continue present regimen for pain management. He will have a CT scan of the abdomen and pelvis done tomorrow if he can tolerate the oral contrast. MMODL / IJN: [id number] /
[2018-04-08] MEDS: METOPROLOL TARTRATE 25 MG TAB PO SCH ×2 (08:01→20:16)
[2018-04-08] MEDS: HEPARIN SODIUM,PORCINE 5,000 UNIT/ML 1 ML VIAL SQ SCH ×2 (08:01→15:59)
[2018-04-08] MEDS: METOCLOPRAMIDE 10 MG TAB PO SCH ×3 (08:01→18:09)
[2018-04-08] MEDS: FAMOTIDINE 20 MG TAB PO SCH ×2 (08:01→20:17)
[2018-04-08] MEDS ORDERED: SODIUM CHLORIDE 0.9% 1,000 ML IV SCH (08:15)
[2018-04-08] MEDS: ONDANSETRON 4 MG/2 ML VIAL IVP PRN (08:36)
--- NOTE | 2018-04-08 11:21 | CT ---
EXAMINATION TYPE: CT abdomen pelvis w con DATE OF EXAM: 04/08/2018 COMPARISON: 10/06/2019 INDICATION: Nausea and vomiting DLP: 2026 mGycm, Automated exposure control for dose reduction was used. CONTRAST: 100 mL of Isovue 300. Study performed with Oral Contrast TECHNIQUE: Axial images were obtained from above the diaphragm to the pubic rami in the axial plane a t 5 mm thick sections. Reconstructed images are reviewed on the computer in the coronal plane. FINDINGS: Limited CT sections are obtained the lung bases. Small bilateral pleural effusions present. Some min imal compressive atelectasis is adjacent to the pleural effusions. Coronary artery calcifications.. CT ABDOMEN: Ascites is present. Subcutaneous edema is likely present near the level of the hips. Liver: There is a irregular hypodense area within the periphery of the right lobe liver measuring li roximately 6.2 x 5.7 cm. And 1.5 cm cyst measuring 15 Hounsfield units is in the posterior right mid liver. There is an ill-defined hypodensity along the posterior right lobe liver 0.3 cm. Some biliary dilatation into the right lower lobe may be present. Additional findings mass in the anterior and mid portions of the liver. This area is heterogenous. These areas were present previously and are less d istinct currently than previous Spleen: Normal Pancreas: Normal Adrenal glands: The adrenal glands are normal. Gallbladder: Normal Kidneys: No masses are evident. No hydronephrosis is present. Small cortical renal cyst present on the mid right kidney estimated at 1.2 cm in size. Delayed images were obtained through the kidneys, which remain unremarkable. Aorta: Vascular calcification is within the aorta. Inferior vena cava: Normal. CT PELVIS: Loops of bowel within the abdomen and pelvis are normal. There are loops of bowel which are incom pletely distended or lack oral contrast limiting their evaluation. Appendix: Normal as visualized. Urinary bladder: Incompletely distended. This may account for some mild wall thickening. Wall thicken ing however could be asymmetric with greater thickening along the posterior lateral right urinary anand dder. Consider evaluation with ultrasound. Genitourinary structures: Prostate contains calcification. Osseous structures: No suspicious lytic or sclerotic lesions. Small sclerotic areas adjacent to the l eft sacroiliac joint space. Facet degenerative changes present. IMPRESSIONS: 1. Ill-defined masses within the liver less well measured on the current examination. Grossly appear more infiltrative and therefore larger than comparison. 2. Increasing ascites. 3. Interval development of small bilateral pleural effusions
[2018-04-08] MEDS: HYDROmorphone 1 MG/ML 1 ML SYRINGE IVP PRN (15:59)
--- NOTE | 2018-04-08 23:26 | PN ---
PROGRESS NOTE DATE OF SERVICE: 04/08/2018. ATTENDING PHYSICIAN: Dr. Mary Johnson. CHIEF COMPLAINT: Re-evaluation. HISTORY OF PRESENT ILLNESS: This 72-year-old gentleman was admitted to the hospital because of persistent nausea and vomiting. The patient has liver cancer. The patient has cachexia related to malignancy. He is doing better today. He denied any further nausea or vomiting now approaching 14 to 15 hours. He is scheduled to have a CT scan of the abdomen and pelvis today. REVIEW OF SYSTEMS: NEURO: Denies any headaches dizziness. PSYCH: No anxiety. CARDIAC: No chest pain, angina, palpitations. RESPIRATORY: Denies shortness of breath, cough, hemoptysis. GI: No nausea or vomiting. No abdominal pain. No diarrhea. Did have a bowel movement. : No symptoms or dysuria or hematuria. EXTREMITIES: No pain. CONSTITUTIONAL: No fevers or chills. PHYSICAL EXAMINATION: A 72-year-old gentleman at present, in no distress. Vital signs reveal temperature 97.6, pulse 83, respirations 16, blood pressure 110/64, pulse ox 98% on room air. HEENT: Normocephalic. NECK: Supple. No JVD. CHEST: Clear to auscultation. Decreased air flow in the bases. Dullness to percussion, right base. CARDIAC: Distant heart sounds. S1 and S2 with no gallops. Regular rhythm. Systolic murmur 2/6 left sternal border. ABDOMEN: Soft, protuberant. Bowel sounds active. Possible ascites. EXTREMITIES: No edema. The patient does have some dependent edema in the buttock area. LAB ASSESSMENT: None new. ASSESSMENT: 1. Persistent nausea and vomiting, improved. 2. Liver cancer. 3. 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 4. Anemia of chronic disease. PLAN: Continue present medical regimen. Patient is scheduled for a CT scan of the abdomen and pelvis today. CT scan of the abdomen pelvis was done and the results were reviewed and relayed to the patient over the phone. Does show some progression of his disease. Potential discharge home tomorrow if he remains stable. MMODL / IJN: [id number] /
[2018-04-09] MEDS: HEPARIN SODIUM,PORCINE 5,000 UNIT/ML 1 ML VIAL SQ SCH ×2 (00:15→07:46)
[2018-04-09] MEDS: HYDROmorphone 1 MG/ML 1 ML SYRINGE IVP PRN (01:02)
[2018-04-09 06:35] VITALS: BP 127/72; PULSE 85; RESP 16; TEMP 97.7
[2018-04-09] MEDS: METOPROLOL TARTRATE 25 MG TAB PO SCH (07:46)
[2018-04-09] MEDS: METOCLOPRAMIDE 10 MG TAB PO SCH (07:46)
[2018-04-09] MEDS: FAMOTIDINE 20 MG TAB PO SCH (07:46)
[2018-04-09 07:52] LABS: Anisocytosis Slight; HCT 32.1 % (39.0-53.0); HGB 10.3 gm/dL (13.0-17.5); MCH 30.7 pg (25.0-35.0); MCHC 32.1 g/dL (31.0-37.0); MCV 95.6 fL (80.0-100.0); Macrocytosis Slight; Mean Platelet Volume 6.2; Platelet Count 193 k/uL (150-450); RBC 3.36 m/uL (4.30-5.90); RDW 18.7 % (11.5-15.5)
[2018-04-09 07:55] LABS: Anion Gap 4 mmol/L; Blood Urea Nitrogen 8 mg/dL (9-20); Calcium 7.9 mg/dL (8.4-10.2); Carbon Dioxide 23 mmol/L (22-30); Chloride 111 mmol/L (98-107); Glucose 75 mg/dL (74-99); Potassium 3.8 mmol/L (3.5-5.1); Sodium 138 mmol/L (137-145)
[2018-04-09] MEDS ORDERED: FUROSEMIDE 40 MG TAB PO SCH (09:00)
--- NOTE | 2018-04-10 00:06 | PN ---
PROGRESS NOTE ATTENDING PHYSICIAN: Dr. Don Johnson. DATE OF SERVICE: 04/09/2018. CHIEF COMPLAINT: Re-evaluation. HISTORY OF PRESENT ILLNESS: A 72-year-old gentleman was admitted to the hospital because of persistent nausea and vomiting. He has an underlying history of hepatic CA. The patient denied any fever, chills. He had a CT scan of the abdomen which does suggest some progression of his disease. Discussed with patient the findings again. Also reviewed that what the hydration is just giving him more ascites and subcutaneous edema. The patient understands this. He overall is feeling better. His nausea, vomiting is resolved. At the time of evaluation, the patient plans that if he can tolerate the food today, he would be willing to go home tomorrow. REVIEW OF SYSTEMS: NEURO: Denied any headaches, dizziness. PSYCH: No anxiety. CARDIAC: No chest pain, angina, palpitation. RESPIRATORY: No shortness of breath, cough, hemoptysis. GI: No nausea, vomiting, abdominal pain, diarrhea. Did have bowel movements. : No symptoms of dysuria, hematuria. EXTREMITIES: No pain. CONSTITUTIONAL: No fever, chills. PHYSICAL EXAMINATION: Pleasant gentleman in no distress. Vital signs reveal temperature 97.7, pulse 85, respirations 16, blood pressure 127/72, pulse ox of 96% on room air. HEENT: Normocephalic. The patient has temporal wasting. NECK: No JVD, carotid bruits. CHEST: Clear to auscultation, percussion. CARDIAC: Normal S1, S2 with no gallop. Systolic murmur 2/6 right right 2nd intercostal space and apex. ABDOMEN: Soft. Tense with ascites. No tenderness. No hepatomegaly appreciated. Bowel sounds active. Extremities reveal no edema; however, the patient does have significant edema in bilateral flanks. NEUROLOGIC: Awake, alert, oriented x3 with well-coordinated movements. LABORATORY ASSESSMENT: Hemoglobin 10.3, white count 3.0, platelets 193. Electrolytes normal. BUN 8, creatinine 0.8. Glucose 75. ASSESSMENT: 1. Hepatic cell carcinoma. 2. Persistent nausea, vomiting, improved. 3. Anemia of chronic disease. 4. History of diabetes mellitus, not requiring treatment. 5. Anasarca. 6. Malignant cachexia. PLAN: The patient is stable. Continue present medical regimen. Patient's condition discussed with the patient. Prognosis is guarded. The patient will be discharged when he feels he is ready. MMODL / IJN: [id number] /
== END 2018-04-09 10:52 | disposition home health service (06) | DRG 392 ==
LOC: EC 16:55 → 4MS4W 21:06 → OBSVTOIN 04-04 08:40
PROVIDERS: ADMIT Internal Medicine; ATTEND Internal Medicine
DX: R11.2 Nausea with vomiting, unspecified (principal); C22.7 Other specified carcinomas of liver; C79.9 Secondary malignant neoplasm of unspecified site; R64 Cachexia; E86.0 Dehydration; E11.9 Type 2 diabetes mellitus without complications; E78.5 Hyperlipidemia, unspecified; I10 Essential (primary) hypertension; M46.92 Unspecified inflammatory spondylopathy, cervical region; M46.96 Unspecified inflammatory spondylopathy, lumbar region; N40.0 Benign prostatic hyperplasia without lower urinary tract symptoms; D63.0 Anemia in neoplastic disease; R60.1 Generalized edema; Z79.899 Other long term (current) drug therapy; Z79.84 Long term (current) use of oral hypoglycemic drugs; Z88.5 Allergy status to narcotic agent; Z90.49 Acquired absence of other specified parts of digestive tract; Z98.1 Arthrodesis status; Z82.49 Family history of ischemic heart disease and other diseases of the circulatory system; Z82.5 Family history of asthma and other chronic lower respiratory diseases; Z83.3 Family history of diabetes mellitus
CPT/HCPCS: 36415; 74177; 80048; 80053; 83605; 83690; 85025; 85027; 96361; 96374; 96375; 96376; 99285